=== PATIENT | female | born 1965 | race Caucasian/White ===

== ENCOUNTER 2021-11-05 21:42 | Emergency (ER) | payer BC ==
--- NOTE | 2021-11-05 21:49 | ERPHSYRPT ---
- History of Present Illness Time Seen by Provider: 11/05/21 21:48 Source: patient Exam Limitations: no limitations Physician History: This is an obese 56-year-old white female who 4 days ago was having some symptoms of cough congestion myalgias arthralgias as well as chest pain with coughing. She had a Covid test drawn and found out this morning that it was positive for COVID-19 infection. She continues to have some myalgias and arthralgias. But the cough and congestion has improved. Of most concern is the nonradiating chest pain that is present in the central substernal region. Patient arrives to the emergency department with room air oxygenation level of 98 to 100%. Her heart rate is normal respiratory rate is 18. Timing/Duration: day(s) (4) Cough Quality/Degree: no cough Possible Cause: no prior episodes Associated Symptoms: chest pain/soreness, muscle aches, No shortness of breath Allergies/Adverse Reactions: codeine Adverse Reaction (Verified 11/05/21 23:49) Vomiting tramadol [From [facility]] Adverse Reaction (Verified 11/05/21 23:49) Vomiting Home Medications: Albuterol 2.5 mg/3 ml Neb [Proventil 2.5 mg/3 ml Neb] 1 neb Q4-6HPRN PRN 11/05/21 [History] Albuterol Sulfate [Proair Hfa] 2 puff PRN 11/05/21 [History] Fluticasone/Vilanterol [Breo Ellipta 200-25 Mcg INH] 1 ea DAILY 11/05/21 [History] Travel Risk - International Travel Have you traveled outside of the country in past 3 weeks: No - Coronavirus Screening Are you exhibiting any of the following symptoms?: No Symptoms: Cough: New Onset, Headaches/Body Aches/Fatigue Close contact with a COVID-19 positive Pt in past 14-21 Days: No - Review of Systems Constitutional: Weakness Eyes: No Symptoms Ears, Nose, & Throat: No Symptoms Respiratory: No Symptoms Cardiac: Chest Pain Abdominal/Gastrointestinal: No Symptoms Genitourinary Symptoms: No Symptoms Musculoskeletal: Arthralgias, Myalgias Skin: No Symptoms Neurological: No Symptoms Psychological: No Symptoms Endocrine: No Symptoms Hematologic/Lymphatic: No Symptoms Immunological/Allergic: No Symptoms All Other Systems: Reviewed and Negative - Past Medical History Pertinent Past Medical History: Yes - Past Surgical History Past Surgical History: Yes - Nursing Vital Signs Nursing Vital Signs: Initial Vital Signs Temperature 98.4 F 11/05/21 22:26 Pulse Rate 90 11/05/21 22:26 Respiratory Rate 20 11/05/21 22:26 Blood Pressure 146/93 11/05/21 22:26 O2 Sat by Pulse Oximetry 99 11/05/21 22:26 Pain Scale Pain Intensity 9 - Physical Exam General Appearance: mild distress, alert, anxiety, obese Eye Exam: PERRL/EOMI, eyes nml inspection Ears, Nose, Throat Exam: normal ENT inspection, moist mucous membranes Neck Exam: normal inspection, non-tender, supple, full range of motion Respiratory Exam: normal breath sounds, chest tenderness, lungs clear, airway intact, No respiratory distress Cardiovascular Exam: regular rate/rhythm, normal heart sounds, normal peripheral pulses Gastrointestinal/Abdomen Exam: soft, normal bowel sounds, No tenderness Pelvic Exam: not done Rectal Exam: not done Back Exam: normal inspection, normal range of motion, No CVA tenderness, No vertebral tenderness Extremity Exam: normal inspection, normal range of motion, pelvis stable Neurologic Exam: alert, oriented x 3, cooperative, 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 There is no change from the comparison EKG dated 05/04/2020) Ordered Tests: Active Orders 24 hr Category Date Time Status EKG-ER Only STAT Care 11/05/21 22:28 Active IV Insertion STAT Care 11/05/21 22:28 Active Isolation, Initiate & Maintain STAT Care 11/05/21 22:29 Active Pulse Oximetry (ED) STAT Care 11/05/21 22:28 Active CHEST 1 VIEW (PORTABLE) Stat Exams 11/05/21 22:29 Taken BLOOD CULTURE Stat Lab 11/05/21 23:10 Received CBC W DIFF Stat Lab 11/05/21 23:00 Completed CMP Stat Lab 11/05/21 23:00 Completed D-DIMER QUANTITATIVE Stat Lab 11/05/21 23:00 Completed Ferritin Stat Lab 11/05/21 23:00 Completed INFLUENZA A+B OHLLEY Stat Lab 11/05/21 23:10 Completed LDH-LACTATE DEHYDROGENASE Stat Lab 11/05/21 23:00 Completed Lactic Acid Stat Lab 11/05/21 23:08 Completed [place] Screen Stat Lab 11/05/21 23:00 Completed PROTIME WITH INR Stat Lab 11/05/21 23:00 Completed TROPONIN Q3H Lab 11/05/21 23:00 Completed TROPONIN Q3H Lab 11/06/21 01:30 Ordered TROPONIN Q3H Lab 11/06/21 04:30 Ordered TROPONIN Q3H Lab 11/06/21 07:30 Ordered TROPONIN Q3H Lab 11/06/21 10:30 Ordered UA W/RFX UR CULTURE Stat Lab 11/05/21 22:51 Completed Medication Summary Generic Name Dose Route Start Last Admin Trade Name Freq PRN Reason Stop Dose Admin Sodium Chloride 1,000 mls @ 100 mls/hr 11/05/21 22:30 11/05/21 23:21 Sodium Chloride 0.9% 1000 Ml IV 12/05/21 22:29 100 mls/hr .Q10H NEERAJ Administration Discontinued Medications Generic Name Dose Route Start Last Admin Trade Name Freq PRN Reason Stop Dose Admin Methylprednisolone Sodium 0 mg 11/05/21 22:56 11/05/21 23:20 Succinate 125 mg/ Sterile IV 11/05/21 22:57 125 mg Water 2 ml STAT ONE Administration Morphine Sulfate 4 mg 11/05/21 22:56 11/05/21 23:21 Morphine Sulfate 4 Mg/Ml Injection IV 11/05/21 22:57 4 mg STAT ONE Administration Morphine Sulfate Confirm 11/05/21 23:18 Morphine Sulfate 4 Mg/Ml Injection Administered 11/05/21 23:19 Dose 4 mg .ROUTE .STK-MED ONE Ondansetron HCl 4 mg 11/05/21 22:56 11/05/21 23:20 Ondansetron Hcl 4 Mg/2 Ml Vial IV 11/05/21 22:57 4 mg STAT ONE Administration Ondansetron HCl Confirm 11/05/21 23:18 Ondansetron Hcl 4 Mg/2 Ml Vial Administered 11/05/21 23:19 Dose 4 mg .ROUTE .STK-MED ONE Lab/Rad Data: Laboratory Result Diagrams 11/05/21 23:00 11/05/21 23:00 Laboratory Results 11/05/21 11/05/21 11/05/21 Range/Units 23:10 23:10 23:08 WBC (4.0-10.5) K/mm3 RBC (4.1-5.4) M/mm3 Hgb (12.0-16.0) gm/dl Hct (35-47) % MCV (78-100) fl MCH (26-32) pg MCHC (32-36) g/dl RDW (11.5-14.0) % Plt Count (150-450) K/mm3 MPV (7.5-11.0) fl Gran % (36.0-66.0) % Eos # (Auto) (0-0.5) Absolute Lymphs (auto) (1.0-4.6) Absolute Monos (auto) (0.0-1.3) Lymphocytes % (24.0-44.0) % Monocytes % (0.0-12.0) % Eosinophils % (0.00-5.0) % Basophils % (0.0-0.4) % Absolute Granulocytes (1.4-6.9) Basophils # (0-0.4) PT (9.4-12.5) SECONDS INR (0.8-3.0) D-Dimer (215-500) ng/mL Sodium (137-145) mmol/L Potassium (3.5-5.1) mmol/L Chloride (98-107) mmol/L Carbon Dioxide (22-30) mmol/L Anion Gap (5-15) MEQ/L BUN (7-17) mg/dL Creatinine (0.52-1.04) mg/dL Estimated GFR ML/MIN Glucose (74-106) mg/dL Lactic Acid 0.9 (0.4-2.0) Calcium (8.4-10.2) mg/dL Ferritin (11.1-264) ng/mL Total Bilirubin (0.2-1.3) mg/dL AST (14-36) U/L ALT (0-35) U/L Alkaline Phosphatase (38-126) U/L Lactate Dehydrogenase (120-246) U/L Troponin I (0.000-0.034) ng/mL Serum Total Protein (6.3-8.2) g/dL Albumin (3.5-5.0) g/dL Urine Color (YELLOW) Urine Appearance (CLEAR) Urine pH (5-6) Ur Specific [place] (1.005-1.025) Urine Protein (Negative) Urine Ketones (NEGATIVE) Urine Blood (0-5) Jonathan/ul Urine Nitrite (NEGATIVE) Urine Bilirubin (NEGATIVE) Urine Urobilinogen (0-1) mg/dL Ur Leukocyte Esterase (NEGATIVE) Urine WBC (Auto) (0-5) /HPF Urine RBC (Auto) (0-2) /HPF U Epithel Cells (Auto) (FEW) /HPF Urine Bacteria (Auto) (NEGATIVE) /HPF Urine Mucus (Auto) (NEGATIVE) /HPF Urine Culture Reflexed (NO) Urine Glucose (NEGATIVE) mg/dL Monoscreen (Negative) Influenza Type A Ag NEGATIVE (NEGATIVE) Influenza Type B Ag NEGATIVE (NEGATIVE) Group A Strep Antibody NOT DETECTED (NEGATIVE) 11/05/21 11/05/21 11/05/21 Range/Units 23:00 23:00 23:00 WBC (4.0-10.5) K/mm3 RBC (4.1-5.4) M/mm3 Hgb (12.0-16.0) gm/dl Hct (35-47) % MCV (78-100) fl MCH (26-32) pg MCHC (32-36) g/dl RDW (11.5-14.0) % Plt Count (150-450) K/mm3 MPV (7.5-11.0) fl Gran % (36.0-66.0) % Eos # (Auto) (0-0.5) Absolute Lymphs (auto) (1.0-4.6) Absolute Monos (auto) (0.0-1.3) Lymphocytes % (24.0-44.0) % Monocytes % (0.0-12.0) % Eosinophils % (0.00-5.0) % Basophils % (0.0-0.4) % Absolute Granulocytes (1.4-6.9) Basophils # (0-0.4) PT (9.4-12.5) SECONDS INR (0.8-3.0) D-Dimer (215-500) ng/mL Sodium (137-145) mmol/L Potassium (3.5-5.1) mmol/L Chloride (98-107) mmol/L Carbon Dioxide (22-30) mmol/L Anion Gap (5-15) MEQ/L BUN (7-17) mg/dL Creatinine (0.52-1.04) mg/dL Estimated GFR ML/MIN Glucose (74-106) mg/dL Lactic Acid (0.4-2.0) Calcium (8.4-10.2) mg/dL Ferritin 253 (11.1-264) ng/mL Total Bilirubin (0.2-1.3) mg/dL AST (14-36) U/L ALT (0-35) U/L Alkaline Phosphatase (38-126) U/L Lactate Dehydrogenase (120-246) U/L Troponin I < 0.012 (0.000-0.034) ng/mL Serum Total Protein (6.3-8.2) g/dL Albumin (3.5-5.0) g/dL Urine Color (YELLOW) Urine Appearance (CLEAR) Urine pH (5-6) Ur Specific [place] (1.005-1.025) Urine Protein (Negative) Urine Ketones (NEGATIVE) Urine Blood (0-5) Jonathan/ul Urine Nitrite (NEGATIVE) Urine Bilirubin (NEGATIVE) Urine Urobilinogen (0-1) mg/dL Ur Leukocyte Esterase (NEGATIVE) Urine WBC (Auto) (0-5) /HPF Urine RBC (Auto) (0-2) /HPF U Epithel Cells (Auto) (FEW) /HPF Urine Bacteria (Auto) (NEGATIVE) /HPF Urine Mucus (Auto) (NEGATIVE) /HPF Urine Culture Reflexed (NO) Urine Glucose (NEGATIVE) mg/dL Monoscreen NEGATIVE (Negative) Influenza Type A Ag (NEGATIVE) Influenza Type B Ag (NEGATIVE) Group A Strep Antibody (NEGATIVE) 11/05/21 11/05/21 11/05/21 Range/Units 23:00 23:00 23:00 WBC (4.0-10.5) K/mm3 RBC (4.1-5.4) M/mm3 Hgb (12.0-16.0) gm/dl Hct (35-47) % MCV (78-100) fl MCH (26-32) pg MCHC (32-36) g/dl RDW (11.5-14.0) % Plt Count (150-450) K/mm3 MPV (7.5-11.0) fl Gran % (36.0-66.0) % Eos # (Auto) (0-0.5) Absolute Lymphs (auto) (1.0-4.6) Absolute Monos (auto) (0.0-1.3) Lymphocytes % (24.0-44.0) % Monocytes % (0.0-12.0) % Eosinophils % (0.00-5.0) % Basophils % (0.0-0.4) % Absolute Granulocytes (1.4-6.9) Basophils # (0-0.4) PT 11.1 (9.4-12.5) SECONDS INR 0.94 (0.8-3.0) D-Dimer 251 (215-500) ng/mL Sodium 136 L (137-145) mmol/L Potassium 4.4 (3.5-5.1) mmol/L Chloride 99 (98-107) mmol/L Carbon Dioxide 31 H (22-30) mmol/L Anion Gap 10.9 (5-15) MEQ/L BUN 16 (7-17) mg/dL Creatinine 1.03 (0.52-1.04) mg/dL Estimated GFR 58.7 ML/MIN Glucose 98 (74-106) mg/dL Lactic Acid (0.4-2.0) Calcium 9.5 (8.4-10.2) mg/dL Ferritin (11.1-264) ng/mL Total Bilirubin 0.70 (0.2-1.3) mg/dL AST 23 (14-36) U/L ALT 28 (0-35) U/L Alkaline Phosphatase 90 (38-126) U/L Lactate Dehydrogenase 219 (120-246) U/L Troponin I (0.000-0.034) ng/mL Serum Total Protein 7.6 (6.3-8.2) g/dL Albumin 4.4 (3.5-5.0) g/dL Urine Color (YELLOW) Urine Appearance (CLEAR) Urine pH (5-6) Ur Specific [place] (1.005-1.025) Urine Protein (Negative) Urine Ketones (NEGATIVE) Urine Blood (0-5) Jonathan/ul Urine Nitrite (NEGATIVE) Urine Bilirubin (NEGATIVE) Urine Urobilinogen (0-1) mg/dL Ur Leukocyte Esterase (NEGATIVE) Urine WBC (Auto) (0-5) /HPF Urine RBC (Auto) (0-2) /HPF U Epithel Cells (Auto) (FEW) /HPF Urine Bacteria (Auto) (NEGATIVE) /HPF Urine Mucus (Auto) (NEGATIVE) /HPF Urine Culture Reflexed (NO) Urine Glucose (NEGATIVE) mg/dL Monoscreen (Negative) Influenza Type A Ag (NEGATIVE) Influenza Type B Ag (NEGATIVE) Group A Strep Antibody (NEGATIVE) 11/05/21 11/05/21 Range/Units 23:00 22:51 WBC 5.0 (4.0-10.5) K/mm3 RBC 4.73 (4.1-5.4) M/mm3 Hgb 14.3 (12.0-16.0) gm/dl Hct 44.2 (35-47) % MCV 93.4 (78-100) fl MCH 30.2 (26-32) pg MCHC 32.4 (32-36) g/dl RDW 14.3 H (11.5-14.0) % Plt Count 143 L (150-450) K/mm3 MPV 10.9 (7.5-11.0) fl Gran % 57.7 (36.0-66.0) % Eos # (Auto) 0.07 (0-0.5) Absolute Lymphs (auto) 1.50 (1.0-4.6) Absolute Monos (auto) 0.52 (0.0-1.3) Lymphocytes % 30.2 (24.0-44.0) % Monocytes % 10.5 (0.0-12.0) % Eosinophils % 1.4 (0.00-5.0) % Basophils % 0.2 (0.0-0.4) % Absolute Granulocytes 2.86 (1.4-6.9) Basophils # 0.01 (0-0.4) PT (9.4-12.5) SECONDS INR (0.8-3.0) D-Dimer (215-500) ng/mL Sodium (137-145) mmol/L Potassium (3.5-5.1) mmol/L Chloride (98-107) mmol/L Carbon Dioxide (22-30) mmol/L Anion Gap (5-15) MEQ/L BUN (7-17) mg/dL Creatinine (0.52-1.04) mg/dL Estimated GFR ML/MIN Glucose (74-106) mg/dL Lactic Acid (0.4-2.0) Calcium (8.4-10.2) mg/dL Ferritin (11.1-264) ng/mL Total Bilirubin (0.2-1.3) mg/dL AST (14-36) U/L ALT (0-35) U/L Alkaline Phosphatase (38-126) U/L Lactate Dehydrogenase (120-246) U/L Troponin I (0.000-0.034) ng/mL Serum Total Protein (6.3-8.2) g/dL Albumin (3.5-5.0) g/dL Urine Color YELLOW (YELLOW) Urine Appearance CLEAR (CLEAR) Urine pH 5.0 (5-6) Ur Specific [place] 1.017 (1.005-1.025) Urine Protein NEGATIVE (Negative) Urine Ketones NEGATIVE (NEGATIVE) Urine Blood NEGATIVE (0-5) Jonathan/ul Urine Nitrite NEGATIVE (NEGATIVE) Urine Bilirubin NEGATIVE (NEGATIVE) Urine Urobilinogen NEGATIVE (0-1) mg/dL Ur Leukocyte Esterase NEGATIVE (NEGATIVE) Urine WBC (Auto) NONE (0-5) /HPF Urine RBC (Auto) NONE (0-2) /HPF U Epithel Cells (Auto) RARE (FEW) /HPF Urine Bacteria (Auto) RARE (NEGATIVE) /HPF Urine Mucus (Auto) SLIGHT (NEGATIVE) /HPF Urine Culture Reflexed NO (NO) Urine Glucose NEGATIVE (NEGATIVE) mg/dL Monoscreen (Negative) Influenza Type A Ag (NEGATIVE) Influenza Type B Ag (NEGATIVE) Group A Strep Antibody (NEGATIVE) - Progress Progress: improved Air Movement: good Progress Note: 11/06/21 00:32 Chest x-ray shows no acute cardiopulmonary process. Blood Culture(s) Obtained: Yes Antibiotics given: No Counseled pt/family regarding: lab results, diagnosis, need for follow-up, rad results - Departure Departure Disposition: Home Clinical Impression: COVID-19 virus infection Condition: Stable Critical Care Time: No Referrals: CONCHITA JOYNER [Primary Care Provider] - Follow up/PCP as directed Additional Instructions: Take your medications as prescribed. Quarantine yourself as instructed. Follow-up with your primary care physician for further management. Continue your steroids as prescribed Prescriptions: Prednisone 10 mg [Deltasone 10 mg] 10 mg PO TID #12 tablet
[2021-11-05 22:27] VITALS: O2SAT 99
[2021-11-05] MEDS ORDERED: Sodium Chloride 0.9% 1000 ML 1,000 ML IV SCH (22:30)
[2021-11-05] MEDS ORDERED: Zofran 4 MG/2 ML VIAL IV ONE (22:56)
[2021-11-05] MEDS ORDERED: MORPHINE SULFATE 4 MG INJ IV ONE (22:56)
[2021-11-05] MEDS ORDERED: solu-MEDROL 125 MG, Sterile H2O 10 ml 2 ML IV ONE ×2 (22:56)
[2021-11-05] MEDS ORDERED: Zofran 4 MG/2 ML VIAL ONE (23:18)
[2021-11-05] MEDS ORDERED: Sodium Chloride 0.9% 1000 ML 1,000 ML ONE (23:18)
[2021-11-05] MEDS ORDERED: MORPHINE SULFATE 4 MG INJ ONE (23:18)
[2021-11-05 23:26] LABS: Absolute Neutrophil Ct (ANC) 2.86 (1.4-6.9); Basophil (Absolute #) 0.01 (0-0.4); Eosinophil % 1.4 % (0.00-5.0); Eosinophil (Absolute #) 0.07 (0-0.5); Hematocrit 44.2 % (35-47); Hemoglobin 14.3 gm/dl (12.0-16.0); Lymphocytes % 30.2 % (24.0-44.0); Mean Cell Volume 93.4 fl (78-100); Mean Corpuscular Hemoglobin 30.2 pg (26-32); Mean Corpuscular Hgb Concent. 32.4 g/dl (32-36); Mean Platelet Volume 10.9 fl (7.5-11.0); Monocyte (Absolute #) 0.52 (0.0-1.3); Monocytes % 10.5 % (0.0-12.0); Neutrophil % 57.7 % (36.0-66.0); Platelet Count 143 K/mm3 (150-450); Red Blood Count 4.73 M/mm3 (4.1-5.4); Red Cell Distribution Width 14.3 % (11.5-14.0)
[2021-11-05 23:36] LABS: INR 0.94 (0.8-3.0); PROTIME 11.1 SECONDS (9.4-12.5)
[2021-11-05 23:40] LABS: ALBUMIN 4.4 g/dL (3.5-5.0); ANION GAP 10.9 MEQ/L (5-15); BILIRUBIN,TOTAL 0.7 mg/dL (0.2-1.3); Calcium 9.5 mg/dL (8.4-10.2); Creatinine 1 1.03 mg/dL (0.52-1.04); EST GLOMERULAR FILTRATION RATE 58.7 ML/MIN; Potassium 4.4 mmol/L (3.5-5.1); Total Protein 7.6 g/dL (6.3-8.2)
[2021-11-05 23:50] LABS: INFLUENZA A NEGATIVE (NEGATIVE); INFLUENZA B NEGATIVE (NEGATIVE)
[2021-11-05 23:56] LABS: Appearance CLEAR (CLEAR); Bacteria RARE /HPF (NEGATIVE); Bilirubin NEGATIVE (NEGATIVE); Blood NEGATIVE Ery/ul (0-5); Epithelial Cells RARE /HPF (FEW); Glucose NEGATIVE (NEGATIVE); Ketones NEGATIVE (NEGATIVE); Leukocyte Esterase NEGATIVE (NEGATIVE); Mucus SLIGHT /HPF (NEGATIVE); Nitrite NEGATIVE (NEGATIVE); Protein,Urine Dip NEGATIVE (Negative); Specific Gravity 1.017 (1.005-1.025); Urobilinogen NEGATIVE mg/dL (0-1)
[2021-11-06] MEDS ORDERED: MORPHINE SULFATE 2 MG INJ IV ONE (00:52)
[2021-11-06] MEDS ORDERED: PERCOCET TABLET 5/325MG PO STA (00:54)
[2021-11-06] MEDS ORDERED: MORPHINE SULFATE 2 MG INJ ONE (01:01)
[2021-11-06] MEDS ORDERED: PERCOCET TABLET 5/325MG ONE ×2 (01:13)
[2021-11-06 04:23] VITALS: BP 127/87; PULSE 81
--- NOTE | 2021-11-06 08:48 | XRAY ---
Indication: Covid 19 symptoms. Comparison: May 04, 2020. Portable apical lordotic chest again demonstrates normal heart and lungs with incidental right lung calcified granulomas. Bony thorax intact. No new/acute findings.
== END 2021-11-06 04:05 | disposition home or self-care (01) ==
LOC: ED 21:42
DX: U07.1 COVID-19 (principal); R07.9 Chest pain, unspecified; M79.10 Myalgia, unspecified site; Z79.52 Long term (current) use of systemic steroids; Z79.899 Other long term (current) drug therapy
CPT/HCPCS: 36000; 36415; 71045; 80053; 81001; 82728; 83605; 83615; 84484; 85025; 85379; 85610; 86308; 87040; 87400; 87651; 93005; 94760; 96374; 96375; 96376; 99284; J2270; J2405; J2930; A9270-GY

== ENCOUNTER 2021-11-10 13:43 | Observation (INO) | payer BC ==
[2021-11-10] MEDS ORDERED: solu-MEDROL 125 MG, Sterile H2O 10 ml 2 ML IV ONE ×2 (14:00)
[2021-11-10] MEDS ORDERED: solu-MEDROL ONE (14:06)
[2021-11-10] MEDS ORDERED: TYLENOL 325 MG PO STA (14:07)
[2021-11-10] MEDS ORDERED: Sodium Chloride 0.9% 1000 ML 1,000 ML IV STA (14:07)
[2021-11-10] MEDS ORDERED: TYLENOL 325 MG ONE (14:09)
[2021-11-10] MEDS ORDERED: Sodium Chloride 0.9% 1000 ML 1,000 ML ONE (14:09)
[2021-11-10] MEDS ORDERED: Compazine 10 MG/2 ML ONE (14:11)
[2021-11-10] MEDS ORDERED: Zofran 4 MG/2 ML VIAL IV ONE (14:17)
[2021-11-10] MEDS ORDERED: Zofran 4 MG/2 ML VIAL ONE (14:17)
[2021-11-10 14:42] LABS: Basophil (Absolute #) 0.01 (0-0.4); Eosinophil % 0.1 % (0.00-5.0); Eosinophil (Absolute #) 0.01 (0-0.5); Hemoglobin 13.8 gm/dl (12.0-16.0); Lymphocyte (Absolute #) 1.28 (1.0-4.6); Lymphocytes % 14.1 % (24.0-44.0); Mean Cell Volume 93.1 fl (78-100); Mean Corpuscular Hemoglobin 29.9 pg (26-32); Mean Corpuscular Hgb Concent. 32.1 g/dl (32-36); Mean Platelet Volume 10.5 fl (7.5-11.0); Monocyte (Absolute #) 0.75 (0.0-1.3); Monocytes % 8.3 % (0.0-12.0); Neutrophil % 77.4 % (36.0-66.0); Platelet Count 156 K/mm3 (150-450); Red Blood Count 4.62 M/mm3 (4.1-5.4); Red Cell Distribution Width 13.8 % (11.5-14.0); White Blood Count 9.1 K/mm3 (4.0-10.5)
[2021-11-10 14:56] LABS: ALBUMIN 3.8 g/dL (3.5-5.0); ALKALINE PHOSPHATASE 77 U/L (38-126); ANION GAP 9.3 MEQ/L (5-15); BLOOD UREA NITROGEN 17 mg/dL (7-17); CHLORIDE 100 mmol/L (98-107); Calcium 8.4 mg/dL (8.4-10.2); Carbon Dioxide 31 mmol/L (22-30); Creatinine 1 1.01 mg/dL (0.52-1.04); EST GLOMERULAR FILTRATION RATE > 60.0 ML/MIN; Glucose 101 mg/dL (74-106); MAGNESIUM 2.1 mg/dL (1.6-2.3); SGOT/AST 21 U/L (14-36); SGPT/ALT 18 U/L (0-35); SODIUM 137 mmol/L (137-145); Total Protein 6.7 g/dL (6.3-8.2)
--- NOTE | 2021-11-10 16:24 | ERPHSYRPT ---
- History of Present Illness Time Seen by Provider: 11/10/21 13:54 Source: patient Exam Limitations: no limitations Patient Subjective Stated Complaint: pt here for increase sob, was positive for covid on 11/01/21,she is taking neb treatments,inhalers,predinsone,and antibo tics.and she states is not helping, she also states she is not eating or drinking. pt was at [facility] yesterday and received monoclonal antibodies Triage Nursing Assessment: pt alert, walked in, resp labored at times,has dry cough, face mask in place, skin w/d/p. Physician History: 56-year-old female with a history of asthma, fully vaccinated for COVID-19 presented in the ER with 1 week history of body aches, cough congestion with shortness of breath and subjective feeling of fever chills. She was seen yesterday at [facility], was given monoclonal antibodies and also have finished course of antibiotics and steroids but does not seem helping it at all. She feels short of breath with minimal activity and her oxygen saturation is dropping to upper 80s with activities. Has nausea with vomiting, no abdominal pain. Denies diarrhea. Feels weak fatigued tired and dehydrated. Timing/Duration: week(s) (1), constant, gradual onset, worse Cough Quality/Degree: moderate, dry cough Possible Cause: illness exposure Modifying Factors: Worsens With: activity, coughing Associated Symptoms: fever, chest pain/soreness, cough, headache, muscle aches, nasal congestion, shortness of breath, sinus infection, sore throat Allergies/Adverse Reactions: codeine Adverse Reaction (Verified 11/05/21 23:49) Vomiting tramadol [From Ultram] Adverse Reaction (Verified 11/05/21 23:49) Vomiting Home Medications: Albuterol 2.5 mg/3 ml Neb [Proventil 2.5 mg/3 ml Neb] 1 neb Q4-6HPRN PRN 11/05/21 [History] Albuterol Sulfate [Proair Hfa] 2 puff IH Q4H PRN 11/05/21 [History] Fluticasone/Vilanterol [Breo Ellipta 200-25 Mcg INH] 1 ea DAILY 11/05/21 [History] Hx Tetanus, Diphtheria Vaccination/Date Given: Yes Hx Influenza Vaccination/Date Given: No Hx Pneumococcal Vaccination/Date Given: Yes (unknown) Immunizations Up to Date: Yes Travel Risk - International Travel Have you traveled outside of the country in past 3 weeks: No - Coronavirus Screening Are you exhibiting any of the following symptoms?: Yes Symptoms: Fever, Cough: New Onset, Shortness of Breath, Vomiting/Diarrhea, Headaches/Body Aches/Fatigue - Vaccine Status Have you recieved a Covid-19 vaccination: Yes [employer]: [employer] - Vaccination Dates Date of 2cond Vaccination (if applicable): 07/24 - Review of Systems Constitutional: Fever, Chills, Fatigue, Weakness Eyes: No Symptoms Ears, Nose, & Throat: Nose Congestion, Throat Pain, Throat Swelling Respiratory: Cough, Dyspnea, Wheezing Cardiac: Chest Pain Abdominal/Gastrointestinal: Nausea, No Abdominal Pain Genitourinary Symptoms: No Symptoms Musculoskeletal: Myalgias Skin: No Symptoms Neurological: Headache Psychological: No Symptoms Endocrine: No Symptoms Hematologic/Lymphatic: No Symptoms Immunological/Allergic: No Symptoms - Past Medical History Pertinent Past Medical History: Yes Neurological History: No Pertinent History ENT History: No Pertinent History Cardiac History: No Pertinent History Respiratory History: Asthma, COPD Endocrine Medical History: No Pertinent History Musculoskeletal History: No Pertinent History GI Medical History: No Pertinent History History: No Pertinent History Psycho-Social History: No Pertinent History Female Reproductive Disorders: No Pertinent History - Past Surgical History Past Surgical History: Yes Neuro Surgical History: No Pertinent History Cardiac: No Pertinent History Respiratory: No Pertinent History Gastrointestinal: Cholecystectomy Genitourinary: No Pertinent History Musculoskeletal: No Pertinent History Female Surgical History: Hysterectomy - Social History Smoking Status: Former smoker Exposure to second hand smoke: No Drug Use: none Patient Lives Alone: No - Female History Hx Last Menstrual Period: post - Nursing Vital Signs Nursing Vital Signs: Initial Vital Signs Temperature 99.7 F 11/10/21 13:43 Pulse Rate 109 H 11/10/21 13:43 Respiratory Rate 24 11/10/21 13:43 Blood Pressure 121/94 11/10/21 13:43 O2 Sat by Pulse Oximetry 93 L 11/10/21 13:43 Pain Scale Pain Intensity 4 - Physical Exam General Appearance: no apparent distress, alert Eye Exam: PERRL/EOMI, eyes nml inspection Ears, Nose, Throat Exam: moist mucous membranes, pharyngeal erythema Neck Exam: normal inspection, non-tender, supple, full range of motion Respiratory Exam: normal breath sounds, diminished breath sounds, rhonchi, wheezing Cardiovascular Exam: normal heart sounds, tachycardia Gastrointestinal/Abdomen Exam: soft, normal bowel sounds, No tenderness Back Exam: normal inspection, normal range of motion Extremity Exam: normal inspection, normal range of motion Neurologic Exam: alert, oriented x 3, cooperative Skin Exam: normal color SpO2 Interpretation: normal SpO2: 95 O2 Delivery: Room Air Ordered Tests: Active Orders 24 hr Category Date Time Status Bedrest ROUTINE Activity 11/10/21 18:08 Active Up With Assistance ROUTINE Activity 11/10/21 18:08 Active Handicrafts Teacher STAT Care 11/10/21 14:01 Completed Code Status Order ROUTINE Care 11/10/21 18:08 Completed EKG-ER Only STAT Care 11/10/21 14:00 Completed Fall Protocol Q1H Care 11/10/21 18:08 Active IV Insertion STAT Care 11/10/21 14:00 Completed Oxygen-ED Only Nasal Cannula 2 lpm Care 11/10/21 14:[address] in Observation ROUTINE Care 11/10/21 18:08 Active Weight,Daily 0600 Care 11/10/21 18:08 Active House Regular Diet Diet 11/10/21 Breakfast Active CHEST 1 VIEW (PORTABLE) Stat Exams 11/10/21 14:00 Completed CHEST WITH CONTRAST [CT] Stat Exams 11/10/21 15:18 Completed BLOOD CULTURE Stat Lab 11/10/21 14:32 Received CBC W DIFF Stat Lab 11/10/21 14:27 Completed CMP Stat Lab 11/10/21 14:27 Completed D-DIMER QUANTITATIVE Stat Lab 11/10/21 14:27 Completed MAGNESIUM Stat Lab 11/10/21 14:27 Completed TROPONIN Q3H Lab 11/10/21 14:00 Completed TROPONIN Q3H Lab 11/10/21 16:51 Completed Oxygen Nasal Cannula 2 lpm RT 11/10/21 18:08 Active Transfer Order Routine Transfer 11/10/21 Completed Medication Summary Generic Name Dose Route Start Last Admin Trade Name Freq PRN Reason Stop Dose Admin Acetaminophen 650 mg 11/10/21 18:08 Acetaminophen 325 Mg Tablet PO 12/10/21 18:07 Q4H PRN PRN PAIN AND/OR FEVER Acetaminophen 500 - 1,000 mg 11/10/21 18:47 Acetaminophen 500 Mg Tablet PO 12/10/21 18:46 Q4H PRN PRN Temp > 100.4 Orally Baricitinib 4 mg 11/11/21 10:00 Baricitinib 2 Mg Tablet PO 11/24/21 10:01 DAILY NEERAJ Chlorphenir/Hydrocodone Polistirex 5 ml 11/10/21 18:31 11/10/21 18:35 Hydrocodone/Chlorphen P-Stirex 1 Ml Helga.Er.12h PO 12/10/21 18:30 5 ml [id number] PRN Administration COUGH Dexamethasone Sodium Phosphate 8 mg 11/11/21 10:00 Dexamethasone Sod Phosphate 10 Mg/Ml IV 11/21/21 09:59 DAILY NEERAJ Enoxaparin Sodium 40 mg 11/10/21 20:00 11/10/21 20:42 Enoxaparin Sodium 40 Mg/0.4 Ml Syringe SQ 12/10/21 19:59 40 mg DAILY NEERAJ Administration Remdesivir 100 mg/ Sodium 100 mls @ 100 mls/hr 11/11/21 20:00 Chloride IV 11/14/21 20:59 Q24H NEERAJ Remdesivir 200 mg/ Sodium 250 mls @ 125 mls/hr 11/10/21 20:00 11/10/21 19:48 Chloride IV 11/10/21 21:59 125 mls/hr ONCE ONE Administration Sodium Chloride 1,000 mls @ 30 mls/hr 11/10/21 19:00 Sodium Chloride 0.9% 1000 Ml IV 12/10/21 18:59 .Q24H NEERAJ Lorazepam 1 mg 11/10/21 18:31 11/10/21 18:35 Lorazepam 1 Mg Tablet PO 12/10/21 18:30 1 mg Q4H PRN Administration ANXIETY Lorazepam 1 mg 11/10/21 18:31 Lorazepam 2 Mg/1 Ml 2 Mg Vial IV 12/10/21 18:30 Q4H PRN PRN ANXIETY/AGITATION Ondansetron HCl 4 mg 11/10/21 18:08 Ondansetron Hcl 4 Mg/2 Ml Vial IV 12/10/21 18:07 Q6H PRN PRN NAUSEA/VOMITING Ondansetron HCl 4 mg 11/10/21 18:47 Zofran 4 Mg/Udtablet Orally Disintegrating PO 12/10/21 18:46 Q6H PRN PRN NAUSEA/VOMITING Pantoprazole Sodium 40 mg 11/10/21 20:00 Pantoprazole 40 Mg Vial IV 12/10/21 19:59 Q24H10 NEERAJ Discontinued Medications Generic Name Dose Route Start Last Admin Trade Name [place] PRN Reason Stop Dose Admin Acetaminophen 975 mg 11/10/21 14:07 11/10/21 14:09 Acetaminophen 325 Mg Tablet PO 11/10/21 14:08 975 mg STAT STA Administration Acetaminophen Confirm 11/10/21 14:09 Acetaminophen 325 Mg Tablet Administered 11/10/21 14:10 Dose 975 mg .ROUTE .STK-MED ONE Baricitinib 4 mg 11/11/21 10:00 Baricitinib 2 Mg Tablet PO 11/24/21 10:01 DAILY [facility] Baricitinib 4 mg 11/10/21 20:00 Baricitinib 2 Mg Tablet PO 11/23/21 10:01 DAILY [facility] Baricitinib Confirm 11/10/21 20:34 Baricitinib 2 Mg Tablet Administered 11/10/21 20:35 Dose 4 mg PO .STK-MED ONE Methylprednisolone Sodium 0 mg 11/10/21 14:00 11/10/21 14:09 Succinate 125 mg/ Sterile IV 11/10/21 14:01 125 mg Water 2 ml STAT ONE Administration Dexamethasone Sodium Phosphate 6 mg 11/10/21 18:08 11/10/21 18:40 Dexamethasone Sod Phosphate 10 Mg/Ml IV 11/10/21 18:09 Not Given STAT ONE Enoxaparin Sodium 40 mg 11/11/21 10:00 Enoxaparin Sodium 40 Mg/0.4 Ml Syringe SQ 12/11/21 09:59 DAILY [facility] Sodium Chloride 1,000 mls @ 999 mls/hr 11/10/21 14:07 11/10/21 15:27 Sodium Chloride 0.9% 1000 Ml IV 11/10/21 15:07 Infused .Q1H1M STA Infusion Sodium Chloride Confirm 11/10/21 14:09 Sodium Chloride 0.9% 1000 Ml Administered 11/10/21 14:10 Dose 1,000 mls @ ud .ROUTE .STK-MED ONE Remdesivir 200 mg/ Sodium 250 mls @ 125 mls/hr 11/10/21 17:23 11/10/21 18:40 Chloride IV 11/10/21 19:22 Not Given ONCE ONE Remdesivir 100 mg/ Sodium 100 mls @ 100 mls/hr 11/11/21 17:29 Chloride IV 11/14/21 18:28 Q24H NEERAJ Remdesivir 200 mg/ Sodium 250 mls @ 125 mls/hr 11/10/21 18:41 11/10/21 18:51 Chloride IV 11/10/21 20:40 Not Given ONCE ONE Sodium Chloride Confirm 11/10/21 19:23 Sodium Chloride 0.9% 250 Ml Administered 11/10/21 19:24 Dose 250 mls @ ud IV .STK-MED ONE Methylprednisolone Sodium Succinate Confirm 11/10/21 14:06 Methylprednis Sod Succ 125 Mg/2 Ml Vial Administered 11/10/21 14:07 Dose 125 mg .ROUTE .STK-MED ONE Ondansetron HCl 4 mg 11/10/21 14:17 11/10/21 14:19 Ondansetron Hcl 4 Mg/2 Ml Vial IV 11/10/21 14:18 4 mg STAT ONE Administration Ondansetron HCl Confirm 11/10/21 14:17 Ondansetron Hcl 4 Mg/2 Ml Vial Administered 11/10/21 14:18 Dose 4 mg .ROUTE .STK-MED ONE Pantoprazole Sodium 40 mg 11/11/21 10:00 Pantoprazole 40 Mg Vial IV 12/11/21 09:59 Q24H10 NEERAJ Prochlorperazine Edisylate Confirm 11/10/21 14:11 Prochlorperazine Edisylate 10 Mg/2 Ml Vial Administered 11/10/21 14:12 Dose 10 mg .ROUTE .STK-MED ONE Remdesivir Confirm 11/10/21 19:23 Remdesivir 100 Mg Vial Administered 11/10/21 19:24 Dose 200 mg IV .STK-MED ONE Lab/Rad Data: Laboratory Result Diagrams 11/10/21 14:27 11/10/21 14:27 Laboratory Results 11/10/21 11/10/21 11/10/21 Range/Units 16:51 14:27 14:27 WBC (4.0-10.5) K/mm3 RBC (4.1-5.4) M/mm3 Hgb (12.0-16.0) gm/dl Hct (35-47) % MCV (78-100) fl MCH (26-32) pg MCHC (32-36) g/dl RDW (11.5-14.0) % Plt Count (150-450) K/mm3 MPV (7.5-11.0) fl Gran % (36.0-66.0) % Eos # (Auto) (0-0.5) Absolute Lymphs (auto) (1.0-4.6) Absolute Monos (auto) (0.0-1.3) Lymphocytes % (24.0-44.0) % Monocytes % (0.0-12.0) % Eosinophils % (0.00-5.0) % Basophils % (0.0-0.4) % Absolute Granulocytes (1.4-6.9) Basophils # (0-0.4) D-Dimer 560 H* (215-500) ng/mL Sodium 137 (137-145) mmol/L Potassium 4.0 (3.5-5.1) mmol/L Chloride 100 (98-107) mmol/L Carbon Dioxide 31 H (22-30) mmol/L Anion Gap 9.3 (5-15) MEQ/L BUN 17 (7-17) mg/dL Creatinine 1.01 (0.52-1.04) mg/dL Estimated GFR > 60.0 ML/MIN Glucose 101 (74-106) mg/dL Calcium 8.4 (8.4-10.2) mg/dL Magnesium 2.1 (1.6-2.3) mg/dL Total Bilirubin 0.90 (0.2-1.3) mg/dL AST 21 (14-36) U/L ALT 18 (0-35) U/L Alkaline Phosphatase 77 (38-126) U/L Troponin I < 0.012 (0.000-0.034) ng/mL Serum Total Protein 6.7 (6.3-8.2) g/dL Albumin 3.8 (3.5-5.0) g/dL 11/10/21 11/10/21 Range/Units 14:27 14:00 WBC 9.1 (4.0-10.5) K/mm3 RBC 4.62 (4.1-5.4) M/mm3 Hgb 13.8 (12.0-16.0) gm/dl Hct 43.0 (35-47) % MCV 93.1 (78-100) fl MCH 29.9 (26-32) pg MCHC 32.1 (32-36) g/dl RDW 13.8 (11.5-14.0) % Plt Count 156 (150-450) K/mm3 MPV 10.5 (7.5-11.0) fl Gran % 77.4 H (36.0-66.0) % Eos # (Auto) 0.01 (0-0.5) Absolute Lymphs (auto) 1.28 (1.0-4.6) Absolute Monos (auto) 0.75 (0.0-1.3) Lymphocytes % 14.1 L (24.0-44.0) % Monocytes % 8.3 (0.0-12.0) % Eosinophils % 0.1 (0.00-5.0) % Basophils % 0.1 (0.0-0.4) % Absolute Granulocytes 7.00 H (1.4-6.9) Basophils # 0.01 (0-0.4) D-Dimer (215-500) ng/mL Sodium (137-145) mmol/L Potassium (3.5-5.1) mmol/L Chloride (98-107) mmol/L Carbon Dioxide (22-30) mmol/L Anion Gap (5-15) MEQ/L BUN (7-17) mg/dL Creatinine (0.52-1.04) mg/dL Estimated GFR ML/MIN Glucose (74-106) mg/dL Calcium (8.4-10.2) mg/dL Magnesium (1.6-2.3) mg/dL Total Bilirubin (0.2-1.3) mg/dL AST (14-36) U/L ALT (0-35) U/L Alkaline Phosphatase (38-126) U/L Troponin I < 0.012 (0.000-0.034) ng/mL Serum Total Protein (6.3-8.2) g/dL Albumin (3.5-5.0) g/dL - Progress Progress: re-examined Air Movement: fair Progress Note: 11/10/21 17:25 She is given fluids along with symptomatic treatment, reevaluation feeling some improvement. Chest x-ray showed bilateral airspace disease. She is currently on 2 L oxygen as her sats are dropping to mid 80s with ambulation. Given stero ids and started on remdesivir. CTA negative for pulmonary embolism. Discussed with Dr. Dougherty and patient is being admitted for observation Blood Culture(s) Obtained: Yes Antibiotics given: No Discussed with Dr.: Other () Counseled pt/family regarding: lab results, diagnosis, rad results - Departure Departure Disposition: Observation Clinical Impression: Pneumonia due to COVID-19 virus Respiratory failure Qualifiers: Chronicity: acute Respiratory failure complication: hypoxia Qualified Code(s): J96.01 - Acute respiratory failure with hypoxia Condition: Stable Critical Care Time: No
[2021-11-10] MEDS ORDERED: REMDESIVIR 200 MG in Sodium Chloride 0.9% 250 ML 250 ML IV ONE ×3 (17:23→20:00)
[2021-11-10] MEDS ORDERED: TYLENOL 325 MG PO PRN (18:08)
[2021-11-10] MEDS ORDERED: Zofran 4 MG/2 ML VIAL IV PRN (18:08)
[2021-11-10] MEDS ORDERED: DECADRON 10MG INJ. IV ONE (18:08)
--- NOTE | 2021-11-10 18:16 | XRAY ---
Indication: Painful respiration. Elevated d-dimer. Multiple contiguous axial images obtained through the chest using 90 cc Isovue-370 contrast and PE protocol. Comparison: None There is adequate opacification of the pulmonary arteries. No obvious pulmonary embolus. Heart not enlarged. Aorta is normal in course and caliber. [place] right hilar calcified nodes. No pathologic mediastinal/hilar lymphadenopathy. Lungs demonstrate moderate diffuse bilateral patchy consolidating/nonconsolidating airspace disease without effusion. Small inferior right upper lobe calcified granuloma Bony thorax intact with minimal degenerative changes throughout the spine.. Limited upper abdomen demonstrates mild fatty liver and cholecystectomy clips. Impression: 1. Negative pulmonary embolus. 2. Diffuse bilateral consolidating/nonconsolidating airspace disease. Commonly reported in imaging features of Covid 19 pneumonia are present. Other processes such as influenza pneumonia and organizing pneumonia, as can be seen with drug toxicity and connective tissue disease, can cause a similar imaging pattern. 3. Incidental fatty liver and old granulomatous disease. Comment: Preliminary interpretation made by [facility]. No critical discrepancy.
--- NOTE | 2021-11-10 18:18 | XRAY ---
Indication: Painful inspiration. Comparison: November 05, 2021. Portable chest demonstrates new moderate bilateral consolidating/nonconsolidating patchy airspace disease favoring Covid 19 pneumonia. Heart not enlarged. Bony thorax intact.
[2021-11-10] MEDS ORDERED: Ativan 1 MG PO PRN (18:31)
[2021-11-10] MEDS ORDERED: Ativan 2 MG/1 ML VIAL IV PRN (18:31)
[2021-11-10] MEDS: HYDROCODONE-CHLORPHEN ER SUSP PO PRN (18:35)
[2021-11-10] MEDS ORDERED: ZOFRAN ODT 4 MG PO PRN (18:47)
[2021-11-10] MEDS ORDERED: TYLENOL EXTRA STRENGTH 500 MG PO PRN (18:47)
[2021-11-10] MEDS ORDERED: Sodium Chloride 0.9% 1000 ML 1,000 ML IV SCH (19:00)
[2021-11-10] MEDS ORDERED: REMDESIVIR IV ONE (19:23)
[2021-11-10] MEDS ORDERED: Sodium Chloride 0.9% 250 ML 250 ML IV ONE (19:23)
[2021-11-10] MEDS ORDERED: OLUMIANT PO SCH (20:00)
[2021-11-10] MEDS ORDERED: OLUMIANT PO ONE (20:34)
[2021-11-10] MEDS: ENOXAPARIN SODIUM SQ SCH (20:42)
[2021-11-10] MEDS: PROTONIX 40 MG IV IV SCH (22:00)
[2021-11-11] MEDS: HYDROCODONE-CHLORPHEN ER SUSP PO PRN (06:16)
[2021-11-11 06:17] LABS: Hematocrit 41.8 % (35-47); Hemoglobin 13.1 gm/dl (12.0-16.0); Mean Cell Volume 92.9 fl (78-100); Mean Corpuscular Hemoglobin 29.1 pg (26-32); Mean Corpuscular Hgb Concent. 31.3 g/dl (32-36); Mean Platelet Volume 10.4 fl (7.5-11.0); Platelet Count 153 K/mm3 (150-450); Red Cell Distribution Width 13.8 % (11.5-14.0); White Blood Count 6.9 K/mm3 (4.0-10.5)
[2021-11-11 06:35] LABS: ALBUMIN 3.5 g/dL (3.5-5.0); ALKALINE PHOSPHATASE 72 U/L (38-126); BLOOD UREA NITROGEN 18 mg/dL (7-17); CHLORIDE 104 mmol/L (98-107); Calcium 8.4 mg/dL (8.4-10.2); Carbon Dioxide 30 mmol/L (22-30); Creatinine 1 0.94 mg/dL (0.52-1.04); EST GLOMERULAR FILTRATION RATE > 60.0 ML/MIN; Glucose 134 mg/dL (74-106); Potassium 4.2 mmol/L (3.5-5.1); SGOT/AST 19 U/L (14-36); SGPT/ALT 17 U/L (0-35); SODIUM 138 mmol/L (137-145); Total Protein 6.5 g/dL (6.3-8.2)
[2021-11-11] MEDS ORDERED: Advair Hfa 115/21 Common canister IH SCH (07:00)
[2021-11-11] MEDS ORDERED: Ativan 1 MG PO PRN (07:30)
[2021-11-11] MEDS ORDERED: Ventolin Hfa MDI IH PRN (07:43)
[2021-11-11] MEDS ORDERED: VENTOLIN COMMON CANISTER IH PRN (07:45)
[2021-11-11] MEDS: ENOXAPARIN SODIUM SQ SCH (09:15)
[2021-11-11] MEDS: PROTONIX 40 MG IV IV SCH (09:21)
[2021-11-11 09:42] VITALS: O2SAT 94
[2021-11-11] MEDS ORDERED: ENOXAPARIN SODIUM SQ SCH (10:00)
[2021-11-11] MEDS ORDERED: DECADRON 10MG INJ. IV SCH (10:00)
[2021-11-11] MEDS ORDERED: PROTONIX 40 MG IV IV SCH (10:00)
[2021-11-11] MEDS ORDERED: OLUMIANT PO SCH ×2 (10:00)
[2021-11-11 11:46] VITALS: BP 104/55; PULSE 58
[2021-11-11] MEDS ORDERED: REMDESIVIR 100 MG in Sodium Chloride 0.9% 100 ML BAG 100 ML IV SCH ×2 (17:29→20:00)
--- NOTE | 2021-11-12 07:52 | HP ---
CHIEF COMPLAINT: Shortness of breath, nausea, vomiting, aching all over, low grade fever, positive COVID test. HISTORY OF PRESENT ILLNESS: The patient is a 56-year-old woman who tested positive about three days ago. She has persistently gotten worse despite taking antibodies as an outpatient, I believe yesterday. The has also tested positive but he is not so bad and he is at home. She does smokes some and has history of chronic obstructive pulmonary disease. She has no other health problems except I would list obesity. Denies diabetes and hypertension. MEDICATIONS: Albuterol, ALLERGIES: CODEINE. TRAMADOL. PAST MEDICAL HISTORY: Asthma, chronic obstructive pulmonary disease, diabetes, hypertension. PAST SURGICAL HISTORY: Hysterectomy. Cholecystectomy. REVIEW OF SYSTEMS: CONSTITUTIONAL: She has decreased appetite. She is extremely fatigued, aching and just feels really bad and has progressively feeling worse over three days. HEENT: No problems hearing or seeing. CHEST: She states she feels sharp pain with deep breath. CVS: No heaviness. No myocardial infarctions. No heart failure. No history of coronary artery disease. ABDOMEN: She has been nauseated. No diarrhea. EXTREMITIES: Aches all over, can ambulate. PHYSICAL EXAMINATION: The patient is a slightly heavy, very pleasant, alert and orientated white female. VITAL SIGNS: Temperature 99F, pulse 100, respirations 20. O2 saturation 90% and dropped to 86% on ambulation. HEENT: Pupils equal and reactive to light. NECK: Supple without adenopathy. CHEST: Clear. CVS: No murmurs or gallops. ABDOMEN: Obese. No masses or organomegaly. EXTREMITIES: No cyanosis. Good pulses. No edema. LAB DATA AND TESTS: White count was normal. Chest x-ray I believe showed a little bit of infiltrates bilateral. I do not have the other labs in front of me. IMPRESSION: The patient has COVID pneumonia with mild respiratory distress and constitutional signs all explainable by COVID pneumonia, looks more like the standard [place] that we have had all along. PROGNOSIS: [place] to be good because she did have two vaccines and she has had antibodies and she is not severely hypoxic on day three.
--- NOTE | 2021-11-12 08:42 | DS ---
ADMISSION DIAGNOSIS: COVID. DISCHARGE DIAGNOSES: 1) COVID. 2) MILD CHRONIC OBSTRUCTIVE PULMONARY DISEASE. 3) MYALGIA. HOSPITAL COURSE: The patient has had three days of hurting real bad, increasing shortness of breath, coughing, not eating well. She was at [facility] yesterday and given monoclonal antibodies. The patient was able to walk. Her respirations were okay. She did not require oxygen in the emergency room. 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 She had some vomiting and diarrhea the first day and then it stopped. also has this. She did get two vaccines of [employer] type the last one being 07/24/2021. She said it started with a sore throat and then later on shortness of breath and a little bit of wheezing, headache, just feeling achy all over. She was started with the regular COVID medicines of Remdesivir, Decadron, Zofran if needed, oral antibodies. On the next day, her D-dimer was minimally elevated at 560. Electrolytes were normal. White count was 9. She slept fairly well. She still complains of just diffuse myalgia. has it also. He was advised to go to the emergency room at this point, advised to try to get an oximeter to check him and her. Her O2 saturations have all been running normal. PLAN: The patient will be discharged home on her home medications which include prednisone 20 mg x5 days, 10 mg x5 days. PROGNOSIS: [place] to be good. She has my private number if she should get worse. She is to consider having someone take her to the emergency room before it gets filled up to get him checked out a little better.
== END 2021-11-11 14:00 | disposition home or self-care (01) ==
LOC: ED 13:43 → MED SURG 18:05
PROVIDERS: ADMIT Family Medicine; ATTEND Family Medicine
DX: U07.1 COVID-19 (principal); J44.9 Chronic obstructive pulmonary disease, unspecified; M79.10 Myalgia, unspecified site; J12.82 Pneumonia due to coronavirus disease 2019; Z79.899 Other long term (current) drug therapy
CPT/HCPCS: 36000; 36415; 71045; 71260; 80053; 83735; 84484; 85025; 85027; 85379; 87040; 93005; 93041; 94762; 96360; 96374; 96375; 99285; G0378; J1100; J1650; J2405; J2930; J3490; A9270-GY; J0248

== ENCOUNTER 2022-12-17 08:48 | Emergency (ER) | payer BC ==
[2022-12-17] MEDS ORDERED: BABY ASPIRIN 81 MG CHEW PO ONE (08:55)
--- NOTE | 2022-12-17 08:55 | ERPHSYRPT ---
- History of Present Illness Time Seen by Provider: 12/17/22 08:54 Historian: patient Exam Limitations: no limitations Physician History: This is a 57-year-old obese white female patient of Dr. Osmel Joyner who presents to the emergency department with 1 week history of intermittent substernal, central chest pressure that radiates straight through to her back. However, this morning, approximately 3 AM, a similar episode occurred and the pain went up into her bilateral neck and she became concerned. Patient denies shortness of breath. She has no new stressors. Patient has not had a fever or cough. She does have a history of asthma and COPD. She has never been diagnosed with coronary artery disease in the past. She is a former smoker of cigarettes. Patient has had a cholecystectomy performed in the past and a hysterectomy in the past. She is on a Medrol Dosepak and amoxicillin for treatment of upper respiratory infection and was diagnosed with COVID 19 infection on December 08, 2022. Timing/Duration: week(s) (1), worse Quality: pressure Location: substernal, central Chest Pain Radiation: neck, back Severity of Pain-Max: moderate Severity of Pain-Current: mild (To moderate) Modifying Factors: Improves With: nothing Associated Symptoms: nausea, No vomiting, No fatigue, No weakness, No syncope, No headache, No dizziness Prior Chest Pain/Cardiac Workup: no prior cardiac workup Nitro Today/Relief: no nitro taken today Aspirin Treatment Today: no aspirin today Allergies/Adverse Reactions: codeine Adverse Reaction (Verified 12/17/22 08:56) Vomiting tramadol [From Ultram] Adverse Reaction (Verified 12/17/22 08:56) Vomiting Home Medications: No Reportable Medications [No Reported Medications] 12/17/22 [History] Hx Tetanus, Diphtheria Vaccination/Date Given: Yes Hx Influenza Vaccination/Date Given: No Hx Pneumococcal Vaccination/Date Given: Yes (unknown) Travel Risk - International Travel Have you traveled outside of the country in past 3 weeks: No - Coronavirus Screening Are you exhibiting any of the following symptoms?: No Close contact with a COVID-19 positive Pt in past 14-21 Days: No - Vaccine Status Have you recieved a Covid-19 vaccination: Yes 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: [employer] - Vaccination Dates Date of 2cond Vaccination (if applicable): 07/24 - Review of Systems Constitutional: No Symptoms Eyes: No Symptoms Ears, Nose, & Throat: No Symptoms Respiratory: No Symptoms Cardiac: Chest Pain Abdominal/Gastrointestinal: Nausea, No Abdominal Pain, No Vomiting, No Diarrhea, No Constipation Genitourinary Symptoms: No Symptoms Musculoskeletal: No Symptoms Skin: No Symptoms Neurological: No Symptoms Psychological: No Symptoms Endocrine: No Symptoms Hematologic/Lymphatic: No Symptoms Immunological/Allergic: No Symptoms All Other Systems: Reviewed and Negative - Past Medical History Pertinent Past Medical History: Yes Neurological History: No Pertinent History ENT History: No Pertinent History Cardiac History: No Pertinent History Respiratory History: Asthma, COPD Endocrine Medical History: No Pertinent History Musculoskeletal History: No Pertinent History GI Medical History: No Pertinent History History: No Pertinent History Psycho-Social History: No Pertinent History Female Reproductive Disorders: No Pertinent History - Past Surgical History Past Surgical History: Yes Neuro Surgical History: No Pertinent History Cardiac: No Pertinent History Respiratory: No Pertinent History Gastrointestinal: Cholecystectomy Genitourinary: No Pertinent History Musculoskeletal: No Pertinent History Female Surgical History: Hysterectomy - Social History Smoking Status: Former smoker Exposure to second hand smoke: No Drug Use: none Patient Lives Alone: No - Nursing Vital Signs Nursing Vital Signs: Initial Vital Signs Temperature 98.5 F 12/17/22 08:57 Pulse Rate 84 12/17/22 08:57 Respiratory Rate 14 12/17/22 08:57 Blood Pressure 177/106 12/17/22 08:57 O2 Sat by Pulse Oximetry 98 12/17/22 08:57 Pain Scale Pain Intensity 3 - Physical Exam General Appearance: no apparent distress, alert, anxiety, obese Eye Exam: PERRL/EOMI, eyes nml inspection Ears, Nose, Throat Exam: normal ENT inspection, moist mucous membranes Neck Exam: normal inspection, non-tender, supple, full range of motion Respiratory Exam: normal breath sounds, chest tenderness, respiratory distress, airway intact, No lungs clear Cardiovascular Exam: regular rate/rhythm, normal heart sounds, normal peripheral pulses Gastrointestinal/Abdomen Exam: soft, normal bowel sounds, tenderness Pelvic Exam: not done Rectal Exam: not done Back Exam: normal inspection, normal range of motion, No CVA tenderness, No vertebral tenderness Extremity Exam: normal inspection, normal range of motion, pelvis stable Neurologic Exam: alert, oriented x 3, cooperative, 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 This twelve-lead EKG was interpreted by me.) Ordered Tests: Active Orders 24 hr Category Date Time Status EKG-ER Only STAT Care 12/17/22 08:55 Active IV Insertion STAT Care 12/17/22 08:55 Active Pulse Oximetry (ED) STAT Care 12/17/22 08:55 Active CHEST 1 VIEW (PORTABLE) Stat Exams 12/17/22 08:55 Completed CHEST WITH CONTRAST [CT] Routine Exams 12/17/22 11:23 Completed CBC W DIFF Stat Lab 12/17/22 09:11 Completed CMP Stat Lab 12/17/22 09:11 Completed D-DIMER QUANTITATIVE Stat Lab 12/17/22 09:11 Completed TROPONIN Q4H Lab 12/17/22 09:11 Completed TROPONIN Q4H Lab 12/17/22 13:00 Ordered TROPONIN Q4H Lab 12/17/22 17:00 Ordered Medication Summary Discontinued Medications Generic Name Dose Route Start Last Admin Trade Name Freq PRN Reason Stop Dose Admin Aspirin 324 mg 12/17/22 08:55 12/17/22 09:03 Aspirin 81 Mg Tab.Chew PO 12/17/22 08:56 324 mg STAT ONE Administration Aspirin Confirm 12/17/22 09:04 Aspirin 81 Mg Tab.Chew Administered 12/17/22 09:05 Dose 324 mg .ROUTE .STK-MED ONE Sodium Chloride 500 mls @ 500 mls/hr 12/17/22 10:04 12/17/22 11:31 Sodium Chloride 0.9% 500 Ml IV 12/17/22 11:03 Infused .Q1H ONE Infusion Sodium Chloride Confirm 12/17/22 10:27 Sodium Chloride 0.9% 500 Ml Administered 12/17/22 10:28 Dose 500 mls @ ud IV .STK-MED ONE Lab/Rad Data: Laboratory Result Diagrams 12/17/22 09:11 12/17/22 09:11 Laboratory Results 12/17/22 12/17/22 12/17/22 Range/Units 09:11 09:11 09:11 WBC (4.0-10.5) x10^3/uL RBC (4.1-5.4) x10^6/uL Hgb (12.0-16.0) g/dL Hct (35-47) % MCV (78-100) fL MCH (26-32) pg MCHC (32-36) g/dL RDW (11.5-14.0) % Plt Count (150-450) x10^3/uL MPV (7.5-11.0) fL Gran % (36.0-66.0) % Immature Gran % (Auto) (0.00-0.4) % Nucleat RBC Rel Count (0.00-0.1) % Eos # (Auto) (0-0.5) x10^3/uL Immature Gran # (Auto) (0.00-0.03) x10^3u/L Absolute Lymphs (auto) (1.0-4.6) x10^3/uL Absolute Monos (auto) (0.0-1.3) x10^3/uL Absolute Nucleated RBC (0.00-0.01) x10^3u/L Lymphocytes % (24.0-44.0) % Monocytes % (0.0-12.0) % Eosinophils % (0.00-5.0) % Basophils % (0.0-0.4) % Absolute Granulocytes (1.4-6.9) x10^3/uL Basophils # (0-0.4) x10^3/uL D-Dimer 0.92 H* (0.0-0.50) mg/L Sodium 136 L (137-145) mmol/L Potassium 4.3 (3.5-5.1) mmol/L Chloride 102 (98-107) mmol/L Carbon Dioxide 30 (22-30) mmol/L Anion Gap 8.5 (5-15) MEQ/L BUN 23 H (7-17) mg/dL Creatinine 0.95 (0.52-1.04) mg/dL Estimated GFR > 60.0 ML/MIN Glucose 103 (74-106) mg/dL Calcium 8.8 (8.4-10.2) mg/dL Total Bilirubin 0.70 (0.2-1.3) mg/dL AST 22 (14-36) U/L ALT 24 (0-35) U/L Alkaline Phosphatase 87 (38-126) U/L Troponin I < 0.012 (0.000-0.034) ng/mL Serum Total Protein 7.1 (6.3-8.2) g/dL Albumin 4.1 (3.5-5.0) g/dL 12/17/22 Range/Units 09:11 WBC 9.2 (4.0-10.5) x10^3/uL RBC 4.91 (4.1-5.4) x10^6/uL Hgb 14.8 (12.0-16.0) g/dL Hct 44.7 (35-47) % MCV 91.0 (78-100) fL MCH 30.1 (26-32) pg MCHC 33.1 (32-36) g/dL RDW 13.2 (11.5-14.0) % Plt Count 189 (150-450) x10^3/uL MPV 10.2 (7.5-11.0) fL Gran % 49.4 (36.0-66.0) % Immature Gran % (Auto) 1.7 H (0.00-0.4) % Nucleat RBC Rel Count 0.0 (0.00-0.1) % Eos # (Auto) 0.26 (0-0.5) x10^3/uL Immature Gran # (Auto) 0.16 H (0.00-0.03) x10^3u/L Absolute Lymphs (auto) 3.40 (1.0-4.6) x10^3/uL Absolute Monos (auto) 0.77 (0.0-1.3) x10^3/uL Absolute Nucleated RBC 0.00 (0.00-0.01) x10^3u/L Lymphocytes % 36.8 (24.0-44.0) % Monocytes % 8.3 (0.0-12.0) % Eosinophils % 2.8 (0.00-5.0) % Basophils % 1.0 (0.0-0.4) % Absolute Granulocytes 4.56 (1.4-6.9) x10^3/uL Basophils # 0.09 (0-0.4) x10^3/uL D-Dimer (0.0-0.50) mg/L Sodium (137-145) mmol/L Potassium (3.5-5.1) mmol/L Chloride (98-107) mmol/L Carbon Dioxide (22-30) mmol/L Anion Gap (5-15) MEQ/L BUN (7-17) mg/dL Creatinine (0.52-1.04) mg/dL Estimated GFR ML/MIN Glucose (74-106) mg/dL Calcium (8.4-10.2) mg/dL Total Bilirubin (0.2-1.3) mg/dL AST (14-36) U/L ALT (0-35) U/L Alkaline Phosphatase (38-126) U/L Troponin I (0.000-0.034) ng/mL Serum Total Protein (6.3-8.2) g/dL Albumin (3.5-5.0) g/dL - Progress Progress: improved, re-examined Air Movement: good Progress Note: 12/17/22 12:04 Chest x-ray was read by me with no evidence of acute cardiopulmonary process. After I read the chest x-ray I reviewed the report from the radiologist and we agree on the chest x-ray findings 12/17/22 12:06 Patient's work-up the findings a moderate level of complexity. Blood Culture(s) Obtained: No Antibiotics given: No Counseled pt/family regarding: lab results, diagnosis, need for follow-up, rad results Medical Desision Making - External Record(s) Reviewed Records reviewed as a part of evaluation & management: Inpatient - Discussion of managment Reviewed:: Test results (I reviewed the test results with the patient including lab and radiographic study results), Need for additional workup (Patient needs to follow-up with her primary care physician for further outpatient work-up including but not limited to cardiac stress test and possible referral to a turner in if indicated) Agreed on:: Treatment plan, need for follow-up - Diagnostic Testing Diagnostic Testing: Diagnostic tests were ordered,analyzed, and reviewed by me and used in my [facility] decision making for this patient. Radiologic studies (if ordered) were read by me initially then discussed with the radiologist . - Departure Departure Disposition: Home Clinical Impression: Chest pain Condition: Stable Critical Care Time: No Referrals: CONCHITA JOYNER [Primary Care Provider] - Follow up/PCP as directed Additional Instructions: Continue your medication as prescribed. Follow-up with your primary care provider for further evaluation and management including cardiac stress test and referral to turner in if indicated.
[2022-12-17] MEDS ORDERED: BABY ASPIRIN 81 MG CHEW ONE (09:04)
[2022-12-17 09:19] LABS: Absolute Neutrophil Ct (ANC) 4.56 x10^3/uL (1.4-6.9); Basophil (Absolute #) 0.09 x10^3/uL (0-0.4); Eosinophil % 2.8 % (0.00-5.0); Eosinophil (Absolute #) 0.26 x10^3/uL (0-0.5); Hematocrit 44.7 % (35-47); Hemoglobin 14.8 g/dL (12.0-16.0); IMMATURE GRAN # 0.16 x10^3u/L (0.00-0.03); IMMATURE GRAN % 1.7 % (0.00-0.4); Lymphocytes % 36.8 % (24.0-44.0); Mean Corpuscular Hemoglobin 30.1 pg (26-32); Mean Corpuscular Hgb Concent. 33.1 g/dL (32-36); Mean Platelet Volume 10.2 fL (7.5-11.0); Monocyte (Absolute #) 0.77 x10^3/uL (0.0-1.3); Monocytes % 8.3 % (0.0-12.0); Neutrophil % 49.4 % (36.0-66.0); Platelet Count 189 x10^3/uL (150-450); Red Blood Count 4.91 x10^6/uL (4.1-5.4); Red Cell Distribution Width 13.2 % (11.5-14.0); White Blood Count 9.2 x10^3/uL (4.0-10.5)
--- NOTE | 2022-12-17 09:25 | XRAY ---
Indication: Chest pain. Comparison: November 10, 2021 Portable chest now demonstrates normal heart and lungs with incidental right lung/right hilar calcified granulomas. Bony thorax intact. No new/acute findings.
[2022-12-17 09:28] LABS: ALBUMIN 4.1 g/dL (3.5-5.0); ALKALINE PHOSPHATASE 87 U/L (38-126); ANION GAP 8.5 MEQ/L (5-15); BLOOD UREA NITROGEN 23 mg/dL (7-17); CHLORIDE 102 mmol/L (98-107); Calcium 8.8 mg/dL (8.4-10.2); Carbon Dioxide 30 mmol/L (22-30); Creatinine 1 0.95 mg/dL (0.52-1.04); EST GLOMERULAR FILTRATION RATE > 60.0 ML/MIN; Glucose 103 mg/dL (74-106); Potassium 4.3 mmol/L (3.5-5.1); SGOT/AST 22 U/L (14-36); SGPT/ALT 24 U/L (0-35); SODIUM 136 mmol/L (137-145); Total Protein 7.1 g/dL (6.3-8.2)
[2022-12-17] MEDS ORDERED: Sodium Chloride 0.9% 500 ML 500 ML IV ONE ×2 (10:04→10:27)
--- NOTE | 2022-12-17 11:58 | XRAY ---
Indication: Chest pain and short of breath. Elevated d-dimer. Multiple contiguous axial images obtained through the chest using 80 cc Isovue 370 contrast and PE protocol. Comparison: November 10, 2021 Good opacification of the pulmonary arteries to include the lobar and segmental branches. No pulmonary embolus. Heart not enlarged. Aorta is normal in course and caliber. Stable chunky right hilar calcified nodes. No pathologic mediastinal/hilar lymphadenopathy. Lungs demonstrate stable inferior right upper lobe calcific granuloma. No new pulmonary mass/nodule, infiltrate, effusion, or pneumothorax. Bony thorax intact again with minimal degenerative changes throughout the spine. Limited upper abdomen again demonstrates fatty liver and cholecystectomy clips. Impression: 1. Continue negative pulmonary embolus. No new/acute findings. 2. Again chronic findings including degenerative spondylosis, fatty liver, and old granulomatous disease.
[2022-12-17 12:22] VITALS: BP 138/86; PULSE 74; O2SAT 98
== END 2022-12-17 12:29 | disposition home or self-care (01) ==
LOC: ED 08:48
DX: R07.9 Chest pain, unspecified (principal); M54.2 Cervicalgia; Z86.16 Personal history of COVID-19
CPT/HCPCS: 36000; 36415; 71045; 71260; 80053; 84484; 85025; 85379; 93005; 94760; 99284; A9270-GY

== ENCOUNTER 2023-05-28 03:35 | Observation (INO) | payer BC ==
[2023-05-28 04:13] LABS: Appearance Clear (Clear); Bacteria None Seen /HPF (None Seen); Bilirubin Negative (Negative); Blood Negative (Negative); Epithelial Cells Few /HPF (None Seen); Glucose, Urine Negative (Negative); Hyaline Casts NONE SEEN /LPF (0-2); Ketones Negative (Negative); Leukocyte Esterase Negative (Negative); Nitrite Negative (Negative); Ph 5.5 (4.6-8.0); Protein,Urine Dip Negative (Negative); RBC 0-2 /HPF (0-5); Specific Gravity 1.025 (1.005-1.030); WBC 0-2 /HPF (0-5)
[2023-05-28] MEDS ORDERED: Sodium Chloride 0.9% 1000 ML 1,000 ML IV SCH ×2 (04:15→09:38)
--- NOTE | 2023-05-28 04:15 | ERPHSYRPT ---
- History of Present Illness Time Seen by Provider: 05/28/23 03:55 Source: patient Exam Limitations: no limitations Patient Subjective Stated Complaint: dizziness and headache Triage Nursing Assessment: Pt ambulated into ER without diff, family member at bedside. Pt c/o dizziness and headache. Pt woke up to go to work yesterday (Friday, May 27) and woke up with the dizziness. Posterior Headache has accompanied it along with nausea and vomiting. Pt denies any loc or hitting her head. Physician History: Patient is a 58-year-old female presents to our ED for evaluation of a posterior headache and dizziness that started yesterday. Symptoms have been constant. No trauma. No fever. Headache is localized. No radiation. Patient had a dose of Tylenol prior to arrival. Patient declined additional pain medication. Symptoms are mild to moderate in intensity. No specific worsening or improving factors. No associated nausea vomiting or diaphoresis. No focal or lateralizing symptoms. Patient denies history of the same. Family at bedside. Patient voices no other complaints or concerns at this time. Portions of this note were created with voice recognition technology. There may be grammatical, spelling, punctuation or sound alike errors Timing/Duration: yesterday Severity: moderate Modifying Factors: Improves With: nothing Associated Symptoms: other (Dizziness) Allergies/Adverse Reactions: codeine Adverse Reaction (Verified 05/28/23 03:55) Vomiting tramadol [From Ultram] Adverse Reaction (Verified 05/28/23 03:55) Vomiting Home Medications: No Reportable Medications [No Reported Medications] 12/17/22 [History] Hx Tetanus, Diphtheria Vaccination/Date Given: No Hx Influenza Vaccination/Date Given: No Hx Pneumococcal Vaccination/Date Given: Yes Travel Risk - International Travel Have you traveled outside of the country in past 3 weeks: No - Coronavirus Screening Are you exhibiting any of the following symptoms?: No Close contact with a COVID-19 positive Pt in past 14-21 Days: No - Vaccine Status Have you recieved a Covid-19 vaccination: Yes 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 - Review of Systems Constitutional: No Symptoms, No Fever, No Chills Eyes: No Symptoms Ears, Nose, & Throat: No Symptoms Respiratory: No Symptoms, No Cough, No Dyspnea Cardiac: No Symptoms, No Chest Pain, No Edema, No Syncope Abdominal/Gastrointestinal: No Symptoms, No Abdominal Pain, No Nausea, No Vomiting, No Diarrhea Genitourinary Symptoms: No Symptoms, No Dysuria Musculoskeletal: No Symptoms, No Back Pain, No Neck Pain Skin: No Symptoms, No Rash Neurological: No Symptoms, No Dizziness, No Focal Weakness, No Sensory Changes Psychological: No Symptoms Endocrine: No Symptoms Hematologic/Lymphatic: No Symptoms Immunological/Allergic: No Symptoms All Other Systems: Reviewed and Negative - Past Medical History Pertinent Past Medical History: Yes Neurological History: No Pertinent History ENT History: No Pertinent History Cardiac History: No Pertinent History Respiratory History: Asthma, COPD Endocrine Medical History: No Pertinent History Musculoskeletal History: No Pertinent History GI Medical History: Gallbladder Disease History: No Pertinent History Psycho-Social History: No Pertinent History Female Reproductive Disorders: No Pertinent History - Past Surgical History Past Surgical History: Yes Neuro Surgical History: No Pertinent History Cardiac: No Pertinent History Respiratory: No Pertinent History Gastrointestinal: Cholecystectomy Genitourinary: No Pertinent History Musculoskeletal: No Pertinent History Female Surgical History: Hysterectomy - Social History Smoking Status: Former smoker Exposure to second hand smoke: No Drug Use: none Patient Lives Alone: No - Nursing Vital Signs Nursing Vital Signs: Initial Vital Signs Temperature 96.7 F 05/28/23 03:44 Pulse Rate 78 05/28/23 03:44 Respiratory Rate 18 05/28/23 03:44 Blood Pressure 150/90 05/28/23 03:44 O2 Sat by Pulse Oximetry 98 05/28/23 03:44 Pain Scale Pain Intensity 7 - Physical Exam General Appearance: no apparent distress, alert Eye Exam: PERRL/EOMI, eyes nml inspection Ears, Nose, Throat Exam: normal ENT inspection, TMs normal, pharynx normal, moist mucous membranes Neck Exam: normal inspection, non-tender, supple, full range of motion Respiratory Exam: normal breath sounds, lungs clear, airway intact, No respiratory distress Cardiovascular Exam: regular rate/rhythm, normal heart sounds, normal peripheral pulses Gastrointestinal/Abdomen Exam: soft, normal bowel sounds, No tenderness, No mass Back Exam: normal inspection, normal range of motion, No CVA tenderness, No vertebral tenderness Extremity Exam: normal inspection, normal range of motion, pelvis stable Neurologic Exam: alert, oriented x 3, cooperative, normal mood/affect, nml cerebellar function, nml station & gait, sensation nml, No motor deficits Skin Exam: normal color, warm, dry, No rash Lymphatic Exam: No adenopathy SpO2 Interpretation: normal SpO2: 95 O2 Delivery: Room Air - Course Nursing assessment & vital signs reviewed: Yes EKG Interpreted by Me: RATE (77), Sinus Rhythm, NORMAL AXIS, NORMAL INTERVALS - CT Exams Head CT Interpretation: Tele-radiologist Report (Mild microvascular ischemic changes and senile changes. The rest of the noncontrast CT study for the brain is unremarkable) Ordered Tests: Active Orders 24 hr Category Date Time Status Supervisor Dock STAT Care 05/28/23 04:12 Active EKG-ER Only STAT Care 05/28/23 04:11 Active IV Insertion STAT Care 05/28/23 04:11 Active Pulse Oximetry (ED) STAT Care 05/28/23 04:11 Active HEAD WITHOUT CONTRAST [CT] Stat Exams 05/28/23 04:13 Ordered CBC W DIFF Stat Lab 05/28/23 04:15 Completed CMP Stat Lab 05/28/23 04:15 Completed TROPONIN Q4H Lab 05/28/23 04:15 Completed TROPONIN Q4H Lab 05/28/23 08:15 Ordered TROPONIN Q4H Lab 05/28/23 12:15 Ordered UA W/RFX UR CULTURE Stat Lab 05/28/23 04:01 Completed Medication Summary Generic Name Dose Route Start Last Admin Trade Name Freq PRN Reason Stop Dose Admin Sodium Chloride 1,000 mls @ 75 mls/hr 05/28/23 04:15 05/28/23 04:15 Sodium Chloride 0.9% 1000 Ml IV 06/27/23 04:14 75 mls/hr .[id number] NEERAJ Administration Lab/Rad Data: Laboratory Result Diagrams 05/28/23 04:15 05/28/23 04:15 Laboratory Results 05/28/23 05/28/23 05/28/23 Range/Units 04:15 04:15 04:15 WBC 7.6 (4.0-10.5) x10^3/uL RBC 4.94 (4.1-5.4) x10^6/uL Hgb 15.0 (12.0-16.0) g/dL Hct 45.1 (35-47) % MCV 91.3 (78-100) fL MCH 30.4 (26-32) pg MCHC 33.3 (32-36) g/dL RDW 13.5 (11.5-14.0) % Plt Count 171 (150-450) x10^3/uL MPV 11.3 H (7.5-11.0) fL Gran % 60.1 (36.0-66.0) % Immature Gran % (Auto) 0.3 (0.00-0.4) % Nucleat RBC Rel Count 0.0 (0.00-0.1) % Eos # (Auto) 0.25 (0-0.5) x10^3/uL Immature Gran # (Auto) 0.02 (0.00-0.03) x10^3u/L Absolute Lymphs (auto) 2.10 (1.0-4.6) x10^3/uL Absolute Monos (auto) 0.62 (0.0-1.3) x10^3/uL Absolute Nucleated RBC 0.00 (0.00-0.01) x10^3u/L Lymphocytes % 27.6 (24.0-44.0) % Monocytes % 8.2 (0.0-12.0) % Eosinophils % 3.3 (0.00-5.0) % Basophils % 0.5 (0.0-0.4) % Absolute Granulocytes 4.57 (1.4-6.9) x10^3/uL Basophils # 0.04 (0-0.4) x10^3/uL Sodium 141 (137-145) mmol/L Potassium 4.4 (3.5-5.1) mmol/L Chloride 105 (98-107) mmol/L Carbon Dioxide 29 (22-30) mmol/L Anion Gap 11.4 (5-15) MEQ/L BUN 21 H (7-17) mg/dL Creatinine 0.88 (0.52-1.04) mg/dL Estimated GFR > 60.0 ML/MIN Glucose 130 H (74-106) mg/dL Calcium 9.2 (8.4-10.2) mg/dL Total Bilirubin 0.70 (0.2-1.3) mg/dL AST 24 (14-36) U/L ALT 33 (0-35) U/L Alkaline Phosphatase 93 (38-126) U/L Troponin I < 0.012 (0.000-0.034) ng/mL Serum Total Protein 7.1 (6.3-8.2) g/dL Albumin 4.2 (3.5-5.0) g/dL Urine Color (Yellow) Urine Appearance (Clear) Urine pH (4.6-8.0) Ur Specific [place] (1.005-1.030) Urine Protein (Negative) Urine Glucose (UA) (Negative) mg/dL Urine Ketones (Negative) Urine Blood (Negative) Urine Nitrite (Negative) Urine Bilirubin (Negative) Urine Urobilinogen (0.2) mg/dL Ur Leukocyte Esterase (Negative) U Hyaline Cast (Auto) (0-2) /LPF Urine Microscopic RBC (0-5) /HPF Urine Microscopic WBC (0-5) /HPF Ur Epithelial Cells (None Seen) /HPF Urine Bacteria (None Seen) /HPF Urine Culture Reflexed (NO) 05/28/23 Range/Units 04:01 WBC (4.0-10.5) x10^3/uL RBC (4.1-5.4) x10^6/uL Hgb (12.0-16.0) g/dL Hct (35-47) % MCV (78-100) fL MCH (26-32) pg MCHC (32-36) g/dL RDW (11.5-14.0) % Plt Count (150-450) x10^3/uL MPV (7.5-11.0) fL Gran % (36.0-66.0) % Immature Gran % (Auto) (0.00-0.4) % Nucleat RBC Rel Count (0.00-0.1) % Eos # (Auto) (0-0.5) x10^3/uL Immature Gran # (Auto) (0.00-0.03) x10^3u/L Absolute Lymphs (auto) (1.0-4.6) x10^3/uL Absolute Monos (auto) (0.0-1.3) x10^3/uL Absolute Nucleated RBC (0.00-0.01) x10^3u/L Lymphocytes % (24.0-44.0) % Monocytes % (0.0-12.0) % Eosinophils % (0.00-5.0) % Basophils % (0.0-0.4) % Absolute Granulocytes (1.4-6.9) x10^3/uL Basophils # (0-0.4) x10^3/uL Sodium (137-145) mmol/L Potassium (3.5-5.1) mmol/L Chloride (98-107) mmol/L Carbon Dioxide (22-30) mmol/L Anion Gap (5-15) MEQ/L BUN (7-17) mg/dL Creatinine (0.52-1.04) mg/dL Estimated GFR ML/MIN Glucose (74-106) mg/dL Calcium (8.4-10.2) mg/dL Total Bilirubin (0.2-1.3) mg/dL AST (14-36) U/L ALT (0-35) U/L Alkaline Phosphatase (38-126) U/L Troponin I (0.000-0.034) ng/mL Serum Total Protein (6.3-8.2) g/dL Albumin (3.5-5.0) g/dL Urine Color Yellow (Yellow) Urine Appearance Clear (Clear) Urine pH 5.5 (4.6-8.0) Ur Specific [place] 1.025 (1.005-1.030) Urine Protein Negative (Negative) Urine Glucose (UA) Negative (Negative) mg/dL Urine Ketones Negative (Negative) Urine Blood Negative (Negative) Urine Nitrite Negative (Negative) Urine Bilirubin Negative (Negative) Urine Urobilinogen 1.0 A (0.2) mg/dL Ur Leukocyte Esterase Negative (Negative) U Hyaline Cast (Auto) NONE SEEN (0-2) /LPF Urine Microscopic RBC 0-2 (0-5) /HPF Urine Microscopic WBC 0-2 (0-5) /HPF Ur Epithelial Cells Few (None Seen) /HPF Urine Bacteria None Seen (None Seen) /HPF Urine Culture Reflexed NO (NO) - Progress Progress: improved Progress Note: Patient is a 58-year-old female presents to our ED with a 1 day history of posterior head headache and dizziness. Symptoms have been ongoing for harry roximately 24 hours. Physical exam negative for focal or lateralizing symptoms. Test ordered includes EKG which is normal sinus rhythm. CT head shows a chronic senile changes. CBC CMP troponin unremarkable. Urinalysis within normal limits. Patient received morphine for headache per her request. Patient also receiving normal saline infusion at 75 cc/h. Patient will require telemetry neuro consultation. It is currently the change of shift. Patient endorsed to Dr. Bruce Stern for final disposition. Complexity of problems addressed is moderate acute complicated No critical care time Complexity of data reviewed and analyzed is extensive. Test ordered. Test reviewed and analyzed. Results were clinically correlated physical exam. Consultation with telemetry neuro will be performed. Results pending It is anticipated that patient will likely require admission. So risk compl ication and or risk of morbidity/mortality of patient management is high. Patient received IV morphine. Patient will likely require hospitalization for further evaluation and treatment of ongoing dizziness and headache. Vital stable. Plan of care established for shared decision making. Patient endorsed to Dr. Elias for final disposition. Portions of this note were created with voice recognition technology. There may be grammatical, spelling, punctuation or sound alike errors 05/28/23 06:52 Counseled pt/family regarding: lab results, diagnosis, rad results - Departure Departure Disposition: Observation Clinical Impression: Dizziness, Headache Condition: Stable Critical Care Time: No Referrals: CONCHITA JOYNER [Primary Care Provider] - Follow up/PCP as directed
[2023-05-28 04:17] LABS: ADD URINE CULTURE? NO (NO)
[2023-05-28 04:27] LABS: ALBUMIN 4.2 g/dL (3.5-5.0); ALKALINE PHOSPHATASE 93 U/L (38-126); ANION GAP 11.4 MEQ/L (5-15); BLOOD UREA NITROGEN 21 mg/dL (7-17); CHLORIDE 105 mmol/L (98-107); Calcium 9.2 mg/dL (8.4-10.2); Carbon Dioxide 29 mmol/L (22-30); Creatinine 1 0.88 mg/dL (0.52-1.04); EST GLOMERULAR FILTRATION RATE > 60.0 ML/MIN; Glucose 130 mg/dL (74-106); Potassium 4.4 mmol/L (3.5-5.1); SGOT/AST 24 U/L (14-36); SGPT/ALT 33 U/L (0-35); SODIUM 141 mmol/L (137-145); Total Protein 7.1 g/dL (6.3-8.2)
[2023-05-28 04:37] LABS: Absolute Neutrophil Ct (ANC) 4.57 x10^3/uL (1.4-6.9); BASOPHIL % 0.5 % (0.0-0.4); Basophil (Absolute #) 0.04 x10^3/uL (0-0.4); Eosinophil % 3.3 % (0.00-5.0); Eosinophil (Absolute #) 0.25 x10^3/uL (0-0.5); Hematocrit 45.1 % (35-47); IMMATURE GRAN # 0.02 x10^3u/L (0.00-0.03); IMMATURE GRAN % 0.3 % (0.00-0.4); Lymphocytes % 27.6 % (24.0-44.0); Mean Cell Volume 91.3 fL (78-100); Mean Corpuscular Hemoglobin 30.4 pg (26-32); Mean Corpuscular Hgb Concent. 33.3 g/dL (32-36); Mean Platelet Volume 11.3 fL (7.5-11.0); Monocyte (Absolute #) 0.62 x10^3/uL (0.0-1.3); Monocytes % 8.2 % (0.0-12.0); Neutrophil % 60.1 % (36.0-66.0); Platelet Count 171 x10^3/uL (150-450); Red Blood Count 4.94 x10^6/uL (4.1-5.4); Red Cell Distribution Width 13.5 % (11.5-14.0); White Blood Count 7.6 x10^3/uL (4.0-10.5)
[2023-05-28] MEDS ORDERED: MORPHINE SULFATE 2 MG INJ ONE (06:45)
--- NOTE | 2023-05-28 06:49 | XRAY ---
CLINICAL HISTORY:headache COMPARISON:None. TECHNIQUE:Axial non-contrast CT scan of the brain was performed from the skull base to the high parietal region. Coronal and sagittal reconstructions were also obtained. FINDINGS: There are a few tiny ill-defined iso-to hypodense areas noted in the subcortical white matter bilaterally, suggestive of microvascular ischemic changes. The ventricular system, cortical sulci and basal cisterns are minimally prominent consistent with senile changes. The visualized brain parenchyma shows a normal appearance. Bryant-white matter differentiation is maintained. No midline shifts or deformity. No intracerebral or extra axial hematoma. Normal CT appearance of the posterior fossa structures namely the cerebellar hemispheres, brainstem and cerebellar peduncles. The IACs are unremarkable. The cerebello-pontine angles are clear. The pituitary gland, the pineal gland, the optic chiasm are unremarkable. The osseous structures in the skull base are unremarkable. No definite calvarium fractures. The scanned paranasal sinuses are clear. IMPRESSION: 1. The above-mentioned findings are suggestive of mild microvascular ischemic changes and senile changes. 2. The rest of non-enhanced CT study for the brain is unremarkable. Electronically Signed by: Marli Escalera MD. (05/28/2023 04:18:17 LEVEL [employer])
[2023-05-28] MEDS ORDERED: MORPHINE SULFATE 2 MG INJ IV ONE (06:51)
[2023-05-28] MEDS ORDERED: BABY ASPIRIN 81 MG CHEW PO ONE (07:54)
[2023-05-28] MEDS ORDERED: BABY ASPIRIN 81 MG CHEW ONE (08:06)
[2023-05-28] MEDS ORDERED: Compazine 10 MG/2 ML ONE (08:14)
[2023-05-28] MEDS ORDERED: Compazine 10 MG/2 ML IV ONE (08:21)
[2023-05-28] MEDS ORDERED: Zofran 4 MG/2 ML VIAL IV PRN (09:38)
[2023-05-28] MEDS ORDERED: TYLENOL 325 MG PO PRN (09:38)
[2023-05-28] MEDS ORDERED: ANTIVERT 25 MG PO PRN (11:24)
--- NOTE | 2023-05-28 11:43 | XRAY ---
Indication: Headache and dizziness. Two-dimensional sonogram and color Doppler imaging of the carotid arteries of the neck performed. Comparison: None Examination of the right carotid circulation demonstrates widely patent common carotid, carotid bulb, internal carotid, and external carotid arteries. PSV of the CCA is 76 m/s. PSV of the ICA is 60 cm/s. ICA/CCA ratio 0.8. Normal antegrade vertebral artery flow. Examination of the left carotid circulation demonstrates widely patent common carotid, carotid bulb, internal carotid, and external carotid arteries. PSV of the CCA is 86 cm/s. PSV of the ICA is 87 cm/s. ICA/CCA ratio is 1.0. Normal antegrade vertebral artery flow. Impression: Left and right carotid arteries of the neck are widely patent. Velocity measurements and ratios are negative for hemodynamically significant flow-limiting stenosis.
[2023-05-28] MEDS: ENOXAPARIN SODIUM SQ SCH (11:47)
--- NOTE | 2023-05-28 13:59 | PCM.HP ---
History of Present Illness - Chief Complaint Chief Complaint: Dizziness Date: 05/28/23 History of Present Illness: is a 58 year old female with a history of asthma/COPD who presented to the hospital with dizziness and headache. The patient states that the hea dache is located in the occipital region and began upon awakening on Friday05/27/23. She has had associated nausea and vomiting. There was no report of head trauma, loss of consciousness, vision changes, or weakness. However, there was a report of left facial numbness. In the ED, the patient was evaluated by teleneurology with recommendations made for further workup. At the time of my evaluation, she denies any worsening or new neurological symptoms. No fevers or chills or neck stiffness. - Review of Systems Constitutional: No Symptoms Eyes: No Symptoms Ears, Nose, & Throat: No Symptoms Respiratory: No Symptoms Cardiac: No Symptoms Abdominal/Gastrointestinal: Nausea, Vomiting Genitourinary Symptoms: No Symptoms Musculoskeletal: No Symptoms Skin: No Symptoms Neurological: Dizziness, Headache, Parasthesia (left facial) Psychological: No Symptoms Endocrine: No Symptoms Hematologic/Lymphatic: No Symptoms Immunological/Allergic: No Symptoms All Other Systems: Reviewed and Negative Medications & Allergies Home Medications: Home Medication List No Reportable Medications [No Reported Medications] 12/17/22 [History Confirmed 05/28/23] Allergies/Adverse Reactions: Allergies Allergy/AdvReac Type Severity Reaction Status Date / Time codeine AdvReac Vomiting Verified 05/28/23 03:55 tramadol [From Ultram] AdvReac Vomiting Verified 05/28/23 03:55 - Past Medical History Past Medical History: Yes Neurological History: No Pertinent History ENT History: No Pertinent History Cardiac History: No Pertinent History Respiratory History: Asthma, COPD Endocrine Medical History: No Pertinent History Musculoskelatal History: No Pertinent History GI Medical History: Gallbladder Disease History: No Pertinent History Pyscho-Social History: No Pertinent History Reproductive Disorders: No Pertinent History - Past Surgical History Past Surgical History: Yes Neuro Surgical History: No Pertinent History Cardiac History: No Pertinent History Respiratory Surgery: No Pertinent History GI Surgical History: Cholecystectomy Genitourinary Surgical Hx: No Pertinent History Musculskeletal Surgical Hx: No Pertinent History Female Surgical History: Hysterectomy - Social History Smoking Status: Never smoker Exposure to second hand smoke: No Alcohol: None, Rarely Drug Use: none - Physical Exam Vital Signs: Vital Signs - 24 hr Temp Pulse Resp BP BP Pulse Ox 05/28/23 09:39 97.6 F 70 19 122/74 97 05/28/23 09:38 97 05/28/23 09:37 97.6 F 70 16 122/74 97 05/28/23 07:10 77 18 132/88 97 05/28/23 06:58 95 05/28/23 06:01 62 17 136/97 95 05/28/23 05:30 69 16 126/87 94 L 05/28/23 05:17 75 17 114/90 96 05/28/23 05:00 67 15 132/94 96 05/28/23 04:30 71 24 132/94 93 L 05/28/23 04:11 95 05/28/23 04:02 76 14 130/100 95 05/28/23 04:00 75 13 130/100 94 L 05/28/23 03:44 96.7 F 78 18 150/90 98 General Appearance: no apparent distress, alert Neurologic Exam: alert, oriented x 3, cooperative, director search II-XII nml as tested, normal mood/affect, nml cerebellar function Eye Exam: PERRL/EOMI, eyes nml inspection Ears, Nose, Throat Exam: normal ENT inspection Neck Exam: normal inspection, non-tender, supple, full range of motion Respiratory Exam: normal breath sounds, lungs clear Cardiovascular Exam: regular rate/rhythm, normal heart sounds Gastrointestinal/Abdomen Exam: soft, tenderness Back Exam: normal range of motion Extremity Exam: normal inspection, normal range of motion Skin Exam: normal color, warm Results - Labs Lab/Micro Results: Lab Results-Last 24 Hours 05/28/23 05/28/23 05/28/23 Range/Units 04:01 04:15 04:15 WBC 7.6 (4.0-10.5) x10^3/uL RBC 4.94 (4.1-5.4) x10^6/uL Hgb 15.0 (12.0-16.0) g/dL Hct 45.1 (35-47) % MCV 91.3 (78-100) fL MCH 30.4 (26-32) pg MCHC 33.3 (32-36) g/dL RDW 13.5 (11.5-14.0) % Plt Count 171 (150-450) x10^3/uL MPV 11.3 H (7.5-11.0) fL Gran % 60.1 (36.0-66.0) % Immature Gran % (Auto) 0.3 (0.00-0.4) % Nucleat RBC Rel Count 0.0 (0.00-0.1) % Eos # (Auto) 0.25 (0-0.5) x10^3/uL Immature Gran # (Auto) 0.02 (0.00-0.03) x10^3u/L Absolute Lymphs (auto) 2.10 (1.0-4.6) x10^3/uL Absolute Monos (auto) 0.62 (0.0-1.3) x10^3/uL Absolute Nucleated RBC 0.00 (0.00-0.01) x10^3u/L Lymphocytes % 27.6 (24.0-44.0) % Monocytes % 8.2 (0.0-12.0) % Eosinophils % 3.3 (0.00-5.0) % Basophils % 0.5 (0.0-0.4) % Absolute Granulocytes 4.57 (1.4-6.9) x10^3/uL Basophils # 0.04 (0-0.4) x10^3/uL Sodium 141 (137-145) mmol/L Potassium 4.4 (3.5-5.1) mmol/L Chloride 105 (98-107) mmol/L Carbon Dioxide 29 (22-30) mmol/L Anion Gap 11.4 (5-15) MEQ/L BUN 21 H (7-17) mg/dL Creatinine 0.88 (0.52-1.04) mg/dL Estimated GFR > 60.0 ML/MIN Glucose 130 H (74-106) mg/dL Hemoglobin A1c (4.5-6.0) % Calcium 9.2 (8.4-10.2) mg/dL Total Bilirubin 0.70 (0.2-1.3) mg/dL AST 24 (14-36) U/L ALT 33 (0-35) U/L Alkaline Phosphatase 93 (38-126) U/L Troponin I (0.000-0.034) ng/mL Serum Total Protein 7.1 (6.3-8.2) g/dL Albumin 4.2 (3.5-5.0) g/dL Triglycerides (30-150) mg/dL Cholesterol (50-200) mg/dL LDL Cholesterol (30-100) mg/dL HDL Cholesterol (40-60) mg/dL Heart Disease Risk Ratio TSH 3rd Generation (0.47-4.68) mIU/L Urine Color Yellow (Yellow) Urine Appearance Clear (Clear) Urine pH 5.5 (4.6-8.0) Ur Specific [place] 1.025 (1.005-1.030) Urine Protein Negative (Negative) Urine Glucose (UA) Negative (Negative) mg/dL Urine Ketones Negative (Negative) Urine Blood Negative (Negative) Urine Nitrite Negative (Negative) Urine Bilirubin Negative (Negative) Urine Urobilinogen 1.0 A (0.2) mg/dL Ur Leukocyte Esterase Negative (Negative) U Hyaline Cast (Auto) NONE SEEN (0-2) /LPF Urine Microscopic RBC 0-2 (0-5) /HPF Urine Microscopic WBC 0-2 (0-5) /HPF Ur Epithelial Cells Few (None Seen) /HPF Urine Bacteria None Seen (None Seen) /HPF Urine Culture Reflexed NO (NO) 05/28/23 05/28/23 05/28/23 Range/Units 04:15 04:15 07:55 WBC (4.0-10.5) x10^3/uL RBC (4.1-5.4) x10^6/uL Hgb (12.0-16.0) g/dL Hct (35-47) % MCV (78-100) fL MCH (26-32) pg MCHC (32-36) g/dL RDW (11.5-14.0) % Plt Count (150-450) x10^3/uL MPV (7.5-11.0) fL Gran % (36.0-66.0) % Immature Gran % (Auto) (0.00-0.4) % Nucleat RBC Rel Count (0.00-0.1) % Eos # (Auto) (0-0.5) x10^3/uL Immature Gran # (Auto) (0.00-0.03) x10^3u/L Absolute Lymphs (auto) (1.0-4.6) x10^3/uL Absolute Monos (auto) (0.0-1.3) x10^3/uL Absolute Nucleated RBC (0.00-0.01) x10^3u/L Lymphocytes % (24.0-44.0) % Monocytes % (0.0-12.0) % Eosinophils % (0.00-5.0) % Basophils % (0.0-0.4) % Absolute Granulocytes (1.4-6.9) x10^3/uL Basophils # (0-0.4) x10^3/uL Sodium (137-145) mmol/L Potassium (3.5-5.1) mmol/L Chloride (98-107) mmol/L Carbon Dioxide (22-30) mmol/L Anion Gap (5-15) MEQ/L BUN (7-17) mg/dL Creatinine (0.52-1.04) mg/dL Estimated GFR ML/MIN Glucose (74-106) mg/dL Hemoglobin A1c (4.5-6.0) % Calcium (8.4-10.2) mg/dL Total Bilirubin (0.2-1.3) mg/dL AST (14-36) U/L ALT (0-35) U/L Alkaline Phosphatase (38-126) U/L Troponin I < 0.012 < 0.012 (0.000-0.034) ng/mL Serum Total Protein (6.3-8.2) g/dL Albumin (3.5-5.0) g/dL Triglycerides (30-150) mg/dL Cholesterol (50-200) mg/dL LDL Cholesterol (30-100) mg/dL HDL Cholesterol (40-60) mg/dL Heart Disease Risk Ratio TSH 3rd Generation 3.730 (0.47-4.68) mIU/L Urine Color (Yellow) Urine Appearance (Clear) Urine pH (4.6-8.0) Ur Specific [place] (1.005-1.030) Urine Protein (Negative) Urine Glucose (UA) (Negative) mg/dL Urine Ketones (Negative) Urine Blood (Negative) Urine Nitrite (Negative) Urine Bilirubin (Negative) Urine Urobilinogen (0.2) mg/dL Ur Leukocyte Esterase (Negative) U Hyaline Cast (Auto) (0-2) /LPF Urine Microscopic RBC (0-5) /HPF Urine Microscopic WBC (0-5) /HPF Ur Epithelial Cells (None Seen) /HPF Urine Bacteria (None Seen) /HPF Urine Culture Reflexed (NO) 05/28/23 05/28/23 05/28/23 Range/Units 07:55 07:55 11:40 WBC (4.0-10.5) x10^3/uL RBC (4.1-5.4) x10^6/uL Hgb (12.0-16.0) g/dL Hct (35-47) % MCV (78-100) fL MCH (26-32) pg MCHC (32-36) g/dL RDW (11.5-14.0) % Plt Count (150-450) x10^3/uL MPV (7.5-11.0) fL Gran % (36.0-66.0) % Immature Gran % (Auto) (0.00-0.4) % Nucleat RBC Rel Count (0.00-0.1) % Eos # (Auto) (0-0.5) x10^3/uL Immature Gran # (Auto) (0.00-0.03) x10^3u/L Absolute Lymphs (auto) (1.0-4.6) x10^3/uL Absolute Monos (auto) (0.0-1.3) x10^3/uL Absolute Nucleated RBC (0.00-0.01) x10^3u/L Lymphocytes % (24.0-44.0) % Monocytes % (0.0-12.0) % Eosinophils % (0.00-5.0) % Basophils % (0.0-0.4) % Absolute Granulocytes (1.4-6.9) x10^3/uL Basophils # (0-0.4) x10^3/uL Sodium (137-145) mmol/L Potassium (3.5-5.1) mmol/L Chloride (98-107) mmol/L Carbon Dioxide (22-30) mmol/L Anion Gap (5-15) MEQ/L BUN (7-17) mg/dL Creatinine (0.52-1.04) mg/dL Estimated GFR ML/MIN Glucose (74-106) mg/dL Hemoglobin A1c 5.74 (4.5-6.0) % Calcium (8.4-10.2) mg/dL Total Bilirubin (0.2-1.3) mg/dL AST (14-36) U/L ALT (0-35) U/L Alkaline Phosphatase (38-126) U/L Troponin I < 0.012 (0.000-0.034) ng/mL Serum Total Protein (6.3-8.2) g/dL Albumin (3.5-5.0) g/dL Triglycerides 122 (30-150) mg/dL Cholesterol 199 (50-200) mg/dL LDL Cholesterol 103 H (30-100) mg/dL HDL Cholesterol 49 (40-60) mg/dL Heart Disease Risk Ratio 4.0 TSH 3rd Generation (0.47-4.68) mIU/L Urine Color (Yellow) Urine Appearance (Clear) Urine pH (4.6-8.0) Ur Specific [place] (1.005-1.030) Urine Protein (Negative) Urine Glucose (UA) (Negative) mg/dL Urine Ketones (Negative) Urine Blood (Negative) Urine Nitrite (Negative) Urine Bilirubin (Negative) Urine Urobilinogen (0.2) mg/dL Ur Leukocyte Esterase (Negative) U Hyaline Cast (Auto) (0-2) /LPF Urine Microscopic RBC (0-5) /HPF Urine Microscopic WBC (0-5) /HPF Ur Epithelial Cells (None Seen) /HPF Urine Bacteria (None Seen) /HPF Urine Culture Reflexed (NO) - Radiology Impressions Radiology Exams & Impressions: Radiology Procedures Category Date Time Status CAROTID BILATERAL [US] Stat Exams 05/28/23 09:38 Completed ECHO W/2D AND DOPPLER [US] Stat Exams 05/28/23 09:38 Taken HEAD WITHOUT CONTRAST [CT] Stat Exams 05/28/23 04:13 Completed - Other Procedures and Tests Respiratory Therapy 05/28/23 09:38 EKG REPEAT IN AM Assessment/Plan (1) Left facial numbness Current Visit: Yes Status: Acute Assessment & Plan: Started ASA (maintenance 81 mg daily). LDL 103. Will start statin for target LDL 70. F/U ECHO, carotid US and MRI/MRA (could not tolerate procedure today due to claustrophobia; will attempt again tomorrow with Ativan premedication) Code(s): R20.0 - ANESTHESIA OF SKIN (2) Dizziness Current Visit: Yes Status: Acute Assessment & Plan: Workup as above. Meclizine and antiemetics prn. PT eval. Code(s): R42 - DIZZINESS AND GIDDINESS (3) Headache Current Visit: Yes Status: Acute Assessment & Plan: Workup as above. Analgesia prn. Code(s): R51.9 - HEADACHE, UNSPECIFIED Telemedicine Encounter - Telemedicine Encounter Telemedicine Encounter: The entirety of this encounter was performed via Telemedicine"
[2023-05-28] MEDS ORDERED: Zocor 10MG PO SCH (22:00)
[2023-05-29 04:38] VITALS: RESP 17
[2023-05-29 04:58] LABS: Absolute Neutrophil Ct (ANC) 3.22 x10^3/uL (1.4-6.9); BASOPHIL % 0.8 % (0.0-0.4); Basophil (Absolute #) 0.05 x10^3/uL (0-0.4); Eosinophil % 4.3 % (0.00-5.0); Eosinophil (Absolute #) 0.27 x10^3/uL (0-0.5); Hematocrit 44.3 % (35-47); Hemoglobin 14.2 g/dL (12.0-16.0); IMMATURE GRAN # 0.02 x10^3u/L (0.00-0.03); IMMATURE GRAN % 0.3 % (0.00-0.4); Lymphocyte (Absolute #) 2.18 x10^3/uL (1.0-4.6); Mean Cell Volume 93.9 fL (78-100); Mean Corpuscular Hemoglobin 30.1 pg (26-32); Mean Corpuscular Hgb Concent. 32.1 g/dL (32-36); Monocyte (Absolute #) 0.49 x10^3/uL (0.0-1.3); Monocytes % 7.9 % (0.0-12.0); Neutrophil % 51.7 % (36.0-66.0); Platelet Count 167 x10^3/uL (150-450); Red Blood Count 4.72 x10^6/uL (4.1-5.4); Red Cell Distribution Width 13.5 % (11.5-14.0); White Blood Count 6.2 x10^3/uL (4.0-10.5)
[2023-05-29 05:12] LABS: ALKALINE PHOSPHATASE 85 U/L (38-126); ANION GAP 10.8 MEQ/L (5-15); BLOOD UREA NITROGEN 15 mg/dL (7-17); CHLORIDE 106 mmol/L (98-107); Calcium 8.6 mg/dL (8.4-10.2); Carbon Dioxide 29 mmol/L (22-30); Creatinine 1 0.92 mg/dL (0.52-1.04); EST GLOMERULAR FILTRATION RATE > 60.0 ML/MIN; Glucose 112 mg/dL (74-106); Potassium 4.1 mmol/L (3.5-5.1); SGOT/AST 25 U/L (14-36); SGPT/ALT 33 U/L (0-35); SODIUM 142 mmol/L (137-145); Total Protein 7.1 g/dL (6.3-8.2)
[2023-05-29 07:32] VITALS: O2SAT 97
--- NOTE | 2023-05-29 07:38 | ECHO ---
Transthoracic echocardiographic examination and color Doppler was done on 05/28/2023. INDICATION: Dizziness, headache. IMPRESSION: 1) NO DEFINITE REGIONAL WALL MOTION ABNORMALITY. ESTIMATED GLOBAL LEFT VENTRICULAR EJECTION FRACTION OF AROUND 60%. 2) TRACE TRICUSPID REGURGITATION. RIGHT VENTRICULAR SYSTOLIC PRESSURE OF 25 MM OF MERCURY. The left ventricle was partially visualized and demonstrated adequate motion of all the segments. Estimated global left ventricular ejection fraction around 60%. There is borderline left ventricular hypertrophy. The mitral valve is seen and this opens adequately. No significant mitral regurgitation is seen. Left atrium is normal. The aortic valve opens adequately. Peak gradient across the aortic valve is 10 mm of Mercury. The right side chambers appear to be normal. There is trace tricuspid regurgitation. The right ventricular systolic pressure of 25 mm of Mercury.
[2023-05-29] MEDS: ENOXAPARIN SODIUM SQ SCH (09:28)
[2023-05-29] MEDS ORDERED: ECOTRIN 81 MG PO SCH (10:00)
[2023-05-29] MEDS ORDERED: Ativan 2 MG/1 ML VIAL IV ONE ×2 (10:30→13:30)
--- NOTE | 2023-05-29 12:21 | XRAY ---
Indication: Stroke symptoms 2 days. Headache and dizziness. Negative CT head one day earlier. Sagittal, coronal, and axial MRI brain performed using pre and post T1, T2, FLAIR, diffusion, and ADC sequences as ordered. 20 cc Dotarem contrast used. Comparison: None Age-appropriate global atrophy. No acute intracranial hemorrhage, abnormal extra-axial fluid collection, or mass effect. Diffusion images are negative for restricted signal. Following gadolinium, there is no abnormal enhancing intra or extra-axial mass. Fourth ventricle is midline without hydrocephalus. 7/8 cranial nerve complex bilaterally symmetric. Normal flow-void signal within the major intracerebral circulation. Normal appearing craniocervical junction and sella turcica. Visualized paranasal sinuses and mastoid air cells are clear. Impression: Negative MRI brain with contrast exam.
--- NOTE | 2023-05-29 12:23 | XRAY ---
Indication: Stroke symptoms 2 days. Headache and dizziness. Negative ultrasound carotid arteries of the neck one day earlier. Multi-slab 3-D [id number] MRA carotid arteries of the neck performed. Comparison: None Visualized common carotid, carotid bulb, internal carotid, external carotid, and vertebral arteries are normal in MRA appearance bilaterally. Impression: Negative MRA carotid arteries of the neck.
--- NOTE | 2023-05-29 13:15 | PCM.DS ---
Discharge Summary Date of Admission: 05/28/23 09:35 Date of Discharge: 05/29/23 Admitting Physician: JAIDEN FERNANDES MD Consults: Consults on Case 05/28/23 07:12 Tele-Health Consult ROUTINE 05/28/23 14:04 Nutritional Consult ROUTINE Primary Care Provider: CONCHITA JOYNER Allergies Allergies codeine Adverse Reaction (Verified 05/28/23 03:55) Vomiting tramadol [From Ultram] Adverse Reaction (Verified 05/28/23 03:55) Vomiting Hospital Summary - Hospital Course Hospital Course: Patient presented with symptoms (headache, dizziness, left facial numbness) concerning for stroke versus TIA. MRI/MRA, carotid US, and echocardiogram were unremarkable. Patient has been placed on ASA 81 mg and a statin, and has been noted to have prediabetes with a A1c of 5.7% with recommendations for dietary modifications. The patient will be discharged with meclizine prn for breakthrough dizziness. There may need to be consideration of ENT referral for vestibular therapy if symptoms are persistent into next week. Will release from from work for 1 week with reassessment at PCP office next week. - Vitals & Intake/Output Vital Signs: Vital Signs Temperature 97.3 F 05/29/23 11:21 Pulse Rate 87 05/29/23 11:21 Respiratory Rate 17 05/29/23 11:21 Blood Pressure 133/76 05/29/23 11:21 O2 Sat by Pulse Oximetry 97 05/29/23 11:21 Intake & Output: Intake & Output 05/27/23 05/28/23 05/29/23 05/30/23 11:59 11:59 11:59 11:59 Intake Total 3106 Balance 3106 Weight 121.7 kg 122.6 kg - Lab Result Diagrams: 05/29/23 04:56 05/29/23 04:56 Lab Results-Last 24 Hrs: Lab Results-Last 24 Hours 05/28/23 05/29/23 05/29/23 Range/Units 11:40 04:56 04:56 WBC 6.2 (4.0-10.5) x10^3/uL RBC 4.72 (4.1-5.4) x10^6/uL Hgb 14.2 (12.0-16.0) g/dL Hct 44.3 (35-47) % MCV 93.9 (78-100) fL MCH 30.1 (26-32) pg MCHC 32.1 (32-36) g/dL RDW 13.5 (11.5-14.0) % Plt Count 167 (150-450) x10^3/uL MPV 11.0 (7.5-11.0) fL Gran % 51.7 (36.0-66.0) % Immature Gran % (Auto) 0.3 (0.00-0.4) % Nucleat RBC Rel Count 0.0 (0.00-0.1) % Eos # (Auto) 0.27 (0-0.5) x10^3/uL Immature Gran # (Auto) 0.02 (0.00-0.03) x10^3u/L Absolute Lymphs (auto) 2.18 (1.0-4.6) x10^3/uL Absolute Monos (auto) 0.49 (0.0-1.3) x10^3/uL Absolute Nucleated RBC 0.00 (0.00-0.01) x10^3u/L Lymphocytes % 35.0 (24.0-44.0) % Monocytes % 7.9 (0.0-12.0) % Eosinophils % 4.3 (0.00-5.0) % Basophils % 0.8 (0.0-0.4) % Absolute Granulocytes 3.22 (1.4-6.9) x10^3/uL Basophils # 0.05 (0-0.4) x10^3/uL Sodium 142 (137-145) mmol/L Potassium 4.1 (3.5-5.1) mmol/L Chloride 106 (98-107) mmol/L Carbon Dioxide 29 (22-30) mmol/L Anion Gap 10.8 (5-15) MEQ/L BUN 15 (7-17) mg/dL Creatinine 0.92 (0.52-1.04) mg/dL Estimated GFR > 60.0 ML/MIN Glucose 112 H (74-106) mg/dL Calcium 8.6 (8.4-10.2) mg/dL Total Bilirubin 0.90 (0.2-1.3) mg/dL AST 25 (14-36) U/L ALT 33 (0-35) U/L Alkaline Phosphatase 85 (38-126) U/L Troponin I < 0.012 (0.000-0.034) ng/mL Serum Total Protein 7.1 (6.3-8.2) g/dL Albumin 4.0 (3.5-5.0) g/dL - Radiology Exams Ordered Rad Exams-Entire Visit: Radiology Procedures Category Date Time Status CAROTID BILATERAL [US] Stat Exams 05/28/23 09:38 Completed ECHO W/2D AND DOPPLER [US] Stat Exams 05/28/23 09:38 Draft HEAD WITHOUT CONTRAST [CT] Stat Exams 05/28/23 04:13 Completed MRA NECK W AND W/O CONTRAST [MRI] Routine Exams 05/29/23 14:00 Completed MRI BRAIN W & W/O CONTRAST [MRI] Routine Exams 05/29/23 14:00 Completed - Procedures and Test Procedures and Tests throughout Hospitalization: Therapy Orders & Screens 05/28/23 09:38 EKG REPEAT IN AM Comment: 05/28/23 11:23 PT Eval & Treat (MD Order) ONCE Reason for Eval:: dizziness, evaluate for safety Diagnosis: Dizziness Discharge Exam General Appearance: no apparent distress, alert Neurologic Exam: alert, oriented x 3, cooperative, blasting contract man II-XII nml as tested, normal mood/affect, nml cerebellar function Eye Exam: PERRL, EOMI, eyes nml inspection, other (no nystagmus) Ears, Nose, Throat Exam: normal ENT inspection Neck Exam: normal inspection, non-tender, supple, full range of motion Respiratory Exam: normal breath sounds, lungs clear Cardiovascular Exam: regular rate/rhythm, normal heart sounds Gastrointestinal/Abdomen Exam: soft, normal bowel sounds, No tenderness, No mass Rectal Exam: normal exam Back Exam: normal range of motion Extremity Exam: normal inspection, normal range of motion Skin Exam: normal color Final Diagnosis/Problem List - Final Discharge Diagnosis/Problem (1) Left facial numbness Current Visit: Yes Status: Acute Assessment & Plan: MRI negative Code(s): R20.0 - ANESTHESIA OF SKIN (2) Dizziness Current Visit: Yes Status: Acute Assessment & Plan: prn meclizine Code(s): R42 - DIZZINESS AND GIDDINESS (3) Headache Current Visit: Yes Status: Acute Assessment & Plan: improved Code(s): R51.9 - HEADACHE, UNSPECIFIED Telemedicine Encounter - Telemedicine Encounter Telemedicine Encounter: The entirety of this encounter was performed via Telemedicine" - Discharge Disposition: DC TO [facility] Condition: Stable Prescriptions: New Meclizine HCl 25 mg [Antivert 25 mg] 25 mg PO Q6H PRN PRN 7 Days #28 tablet PRN Reason: Dizziness Aspirin EC 81 mg [Ecotrin 81 mg] 81 mg PO DAILY 30 Days #30 tablet Simvastatin 10 mg [Zocor 10MG] 10 mg PO HS 30 Days #30 tablet Additional Instructions: Please have your cholesterol panel rechecked in 2 months. Follow up with your PCP next week and consider ENT referral if the dizziness is persistent. Continue dietary modifications due to prediabetes, and Dr. Joyner can monitor your progress. Follow up with: CONCHITA JOYNER [Primary Care Provider] - 06/05/23 3:00 pm
[2023-05-29 16:27] VITALS: BP 122/61; PULSE 78; TEMP 97.8
== END 2023-05-29 17:21 | disposition home or self-care (01) ==
LOC: ED 03:35 → MED SURG 09:35
PROVIDERS: ADMIT Internal Medicine; ATTEND Internal Medicine
DX: R20.0 Anesthesia of skin (principal); R42 Dizziness and giddiness; R51.9 Headache, unspecified; R73.03 Prediabetes; Z20.828 Contact with and (suspected) exposure to other viral communicable diseases
CPT/HCPCS: 36000; 36415; 70450; 70549; 70553; 80053; 80061; 81001; 83036; 83721; 84443; 84484; 85025; 93005; 93041; 93306; 93880; 94760; 96360; 96361; 96374; 96375; 97110; 97161; 99285; G0378; Q3014; J1650; J2060; J2270; J2405; A9270-GY